=== PATIENT | male | born 1955 | race Two or more races ===

== ENCOUNTER 2025-05-26 21:26 | Inpatient (IN) | payer OTHER ==
[~2025-05-26] VITALS: Ht 195.6 cm; Wt 117.0 kg
--- NOTE | 2025-05-26 22:06 | ED.PDOC ---
Musculoskeletal HPI Comments A 69 year-old male presents to the ED with a chief complaint of right leg pain with associated right groin pain and abrasion to right leg S/P fall minutes ago. Patient reports tripping over a dog gate indoors, where the right knee hit his face and the shoulder/face hit the wall. Patient reports he has pulled his right groin before and further suspects he pulled his right groin again after the fall. Patient has no further complaints at this time and otherwise denies further associated symptoms of LOC, dizziness, migraine, chest pain, or N/V. Chief Complaint: Extremity Swelling Time Seen by MD: 21:59 Reviewed Notes: Medications, Allergies Allergies: Coded Allergies: NO KNOWN ALLERGIES (Unverified , 05/26/25) Information Source: Patient Mode of Arrival: EMS Location: Right Extremity Location: Groin, Leg Timing: Minutes Prehospital treatment: None Severity: Moderate Bear Weight: Limited Pain: Moderate Circumstances: Fall Onset of Symptoms: After Trauma Symptoms: Pain Associated signs and symptoms: Leg pain, Other (R Groin Pain ) Past Medical History PAST MEDICAL HISTORY: Denies Surgical History: Denies all surgeries Family History Family History: Reviewed,noncontributory to illness, No family hx of Cancer, No family hx of DM, No family hx of Heart martin, No family hx of HTN, No family hx ofKidney martin, No family hx of Liver martin, No family hx of Lung martin, No family hx of Stroke Social History Smoker: Non-Smoker Alcohol: Denies ETOH Use Drugs: Denies Drug Use Lives In: Home Constitutional: denies: chills, diaphoresis, fatigue, fever, malaise, sweats, weakness, others EENTM: denies: blurred vision, double vision, ear bleeding, ear discharge, ear drainage, ear pain, ear ringing, eye pain, eye redness, hearing loss, mouth pain, mouth swelling, nasal discharge, nose bleeding, nose congestion, nose pain, photophobia, tearing, throat pain, throat swelling, voice changes, others Respiratory: denies: cough, hemoptysis, orthopnea, SOB at rest, shortness of breath, SOB with excertion, stridor, wheezing, others Cardiovascular: denies: chest pain, dizzy spells, diaphoresis, Dyspnea on exertion, edema, irregular heart beat, left arm pain, lightheadedness, palpitations, PND, syncope, others Gastrointestinal: denies: abdomen distended, abdominal pain, blood streaked bowels, constipated, diarrhea, dysphagia, difficulty swallowing, hematemesis, melena, nausea, poor appetite, poor fluid intake, rectal bleeding, rectal pain, vomiting, others Genitourinary: denies: burning, dysuria, flank pain, frequency, hematuria, incontinence, penile discharge, penile sore, pain, testicle pain, testicle swelling, urgency, others Neurological: denies: dizziness, fainting, headache, left sided numbness, left sided weakness, numbness, paresthesia, pre-existing deficit, right sided numbness, right sided weakness, seizure, speech problems, tingling, tremors, weakness, others Musculoskeletal: reports: others (R leg pain, pain to the groin ); denies: back pain, gout, joint pain, joint swelling, muscle pain, muscle stiffness, neck pain Integumetry: reports: others (abrasion to the R leg ); denies: bruises, change in color, change in hair/nails, dryness, laceration, lesions, lumps, rash, wounds Allergic/Immunocompromised: denies: Difficulty Healing, Frequent Infections, Hives, Itching, others Hematologic/Lymphatic: denies: anemia, blood clots, easy bleeding, easy bruising, swollen glands, others Endocrine: denies: excessive hunger, excessive sweating, excessive thirst, excessive urination, flushing, intolerance to cold, intolerance to heat, unexplained weight gain, unexplained weight loss, others Psychiatric: denies: anxiety, bipolar disorder, depression, hopeless, panic disorder, schizophrenia, sleepless, suicidal, others All Other Systems: Reviewed and Negative Physical Exam General Appearance: Moderate Distress, Normal HEENT: Normal ENT Inspection, Pharynx Normal, TMs Normal Neck: Full Range of Motion, Non-Tender, Normal, Normal Inspection Respiratory: Chest Non-Tender, Lungs Clear, No Accessory Muscle Use, No Respiratory Distress, Normal Breath Sounds Cardiovascular: No Edema, No JVD, No Murmur, No Gallop, Normal Peripheral Pulses, Regular Rate/Rhythm Breast Exam: Deferred Gastrointestinal: No Organomegaly, Non Tender, No Pulsatile Mass, Normal Bowel Sounds, Soft Genitalia: Deferred Pelvic: Deferred Rectal: Deferred Extremities: No calf tenderness, Normal capillary refill, Normal inspection, Normal range of motion, Non-tender, No pedal edema Musculoskeletal : Location: Right Extremity Location: Leg Apperance: Other (no shortening of the R leg, tender upper groin, 10cm superficial abrasion to the Right Anterior Leg ) Neurologic: Alert, electronic health records specialist II-XII nml as Tested, No Motor Deficits, Normal Affect, Normal Mood, No Sensory Deficits Cerebellar Function: Normal Reflexes: Normal Skin: Dry, Normal Color, Warm Lymphatic: No Adenopathy Was a procedure done? Was a procedure done?: No Differential Diagnosis EXT Differential Diagnosis: Sprain, Dislocation, Laceration Other Differential Diagnosis Abrasion X-Ray, Labs, Meds, VS Vital Signs Date Time Temp Pulse Resp B/P (MAP) Pulse Ox O2 Delivery O2 Flow Rate FiO2 05/27/25 04:00 84 27 97/58 (71) 97 05/27/25 02:13 87 11 101/64 05/27/25 02:00 93 13 101/64 (76) 95 05/27/25 01:25 95 17 108/58 05/27/25 00:00 98.0 86 21 121/68 (85) 93 98.0 05/26/25 22:00 83 14 132/79 (96) 95 05/26/25 21:45 Room Air* 0 21 05/26/25 21:35 97.6 95 18 123/89 95 97.6 Lab Test 05/27/25 01:50 Range/Units White Blood Count 12.8 H 4.4-10.8 10^3/uL Red Blood Count 5.25 4.5-5.90 10^6/uL Hemoglobin 14.7 13.5-17.5 g/dL Hematocrit 42.9 41.0-53.0 % Mean Corpuscular Volume 81.7 80.0-100.0 fL Mean Corpuscular Hemoglobin 27.9 L 28.0-32.0 pg Mean Corpuscular Hemoglobin Concent 34.2 32.0-36.0 g/dL Red Cell Distribution Width 14.2 11.8-14.3 % Platelet Count 242 140-450 10^3/uL Mean Platelet Volume 8.1 6.9-10.8 fL Neutrophils (%) (Auto) 83.3 H 37.0-80.0 % Lymphocytes (%) (Auto) 11.2 10.0-50.0 % Monocytes (%) (Auto) 5.1 0.0-12.0 % Eosinophils (%) (Auto) 0.2 0.0-7.0 % Basophils (%) (Auto) 0.2 0.0-2.0 % Neutrophils # (Auto) 10.7 H 1.6-8.6 10 ^3/uL Lymphocytes # (Auto) 1.4 0.4-5.4 10 ^3/uL Monocytes # (Auto) 0.7 0-1.3 10 ^3/uL Eosinophils # (Auto) 0 0-0.8 10 ^3/uL Basophils # (Auto) 0 0-0.2 10 ^3/uL Nucleated Red Blood Cells 0.0 % Sodium Level 139 136-145 mmol/L Potassium Level 4.1 3.5-5.1 mmol/L Chloride Level 106 98-107 mmol/L Carbon Dioxide Level 24 20-31 mmol/L Anion Gap 9 5-15 Blood Urea Nitrogen 14 9-23 mg/dL Creatinine 1.04 0.700-1.30 mg/dL Glomerular Filtration Rate Calc 77 >90 mL/min BUN/Creatinine Ratio 13.5 10.0-20.0 Serum Glucose 138 H 74-106 mg/dL Calcium Level 8.8 8.7-10.4 mg/dL Total Bilirubin 0.8 0.2-1.0 mg/dL Aspartate Amino Transferase (AST) 19 13-40 U/L Alanine Aminotransferase (ALT) 12 7-40 U/L Alkaline Phosphatase 68 46-116 U/L Total Protein 6.5 5.7-8.2 g/dL Albumin 4.3 3.2-4.8 g/dL Current Medications Medications (Trade) Dose Ordered Sig/Juli Route Start Time Stop Time Status Last Admin Bacitracin 1 applic ONCE ONCE TOP 05/26/25 22:00 05/26/25 22:01 DC 05/26/25 22:11 Ketorolac Tromethamine (Toradol Injection) 30 mg ONCE ONCE IM 05/26/25 23:00 05/26/25 23:01 DC 05/26/25 23:01 Morphine Sulfate 4 mg ONCE ONCE IV 05/27/25 01:15 05/27/25 01:16 DC 05/27/25 01:25 Ondansetron HCl (Zofran) 4 mg ONCE ONCE IV 05/27/25 01:15 05/27/25 01:16 DC 05/27/25 01:24 Time of 1ST Reevaluation: 22:24 Reevaluation 1ST: Unchanged Patient Education/Counseling: Diagnosis, Treatment Family Education/Counseling: No Family Present Departure 1 Departure Time of Disposition: 04:25 Impression: Primary Impression: Aortic aneurysm Additional Impression: Fracture of femoral neck, right, closed Disposition: 02 SHORT TERM HOSPITAL Condition: Guarded Discharged With: Self Critical Care Note Critical Care Time?: No Stability Stability form required: No Heart Score Heart Score: Heart Score Response (Comments) Value History N/A 0 EKG N/A 0 Age N/A 0 Risk Factors N/A 0 Troponin N/A 0 Total 0 I personally scribed for RHYS FOY ([facility]) on 05/26/25 at 22:06. Electronically submitted by [facility] RHYS FOY May 26, 2025 22:06 ELIDIA FERREIRA MD May 27, 2025 04:27
[2025-05-26] MEDS: BACITRACIN TOP OINT 1 UD PKG TOP ONE (22:11)
[2025-05-26] MEDS: KETOROLAC TROMETH 30 MG/ML 1ML VIAL IM ONE (23:01)
--- NOTE | 2025-05-27 00:25 | DVH ---
History: fall, hip pain Comparison Study: None Technique: Multidetector spiral CT of the pelvis was performed from iliac crests to pubic symphysis. 100 cc of intravenous contrast was administered during this examination. Portal venous imaging was obtained. Axial, coronal and sagittal multiplanar reformats were performed by the technologist on a separate workstation. Radiation Dose : CT Dose: CTDI volume is 0.41 mGy. Dose-length product is 1024.92 mGy*cm Findings: There is an acute minimally displaced fracture through the base of the right femoral neck. The pelvic rings appear intact. Visualized portions of the pelvis demonstrate an aneurysm of the abdominal aorta measuring up to 4.8 cm and of the right common iliac artery measuring up to 4.9 cm. IMPRESSION: 1. Acute minimally displaced fracture through the base of the right femoral neck. 2. Incompletely assessed aortoiliac aneurysms. Comparison with any prior outside imaging is suggest ed in assessing acuity and interval change. If no prior imaging is available, a dedicated CTA is sug gested in further assessment.
[2025-05-27] MEDS: ONDANSETRON HCL 4 MG/2 ML VIAL IV ONE (01:24)
[2025-05-27] MEDS: MORPHINE SULFATE 4 MG/ML SYR/VIAL IV ONE (01:25)
[2025-05-27 02:13] LABS: Hematocrit 42.9 % (41.0-53.0); Hemoglobin 14.7 g/dL (13.5-17.5); Mean Corpuscular Hemoglobin 27.9 pg (28.0-32.0); Mean Corpuscular Volume 81.7 fL (80.0-100.0); Nucleated Red Blood Cells % 0.0 %
[2025-05-27] MEDS: IOHEXOL 350 MG/ML 100ML IJ ONE (02:16)
[2025-05-27 02:21] LABS: Alanine Aminotransferase 12 U/L (7-40); Albumin 4.3 g/dL (3.2-4.8); Alkaline Phosphatase 68 U/L (46-116); Anion Gap 9 (5-15); BUN/Creatinine Ratio 13.5 (10.0-20.0); Blood Urea Nitrogen 14 mg/dL (9-23); Calcium 8.8 mg/dL (8.7-10.4); Carbon Dioxide 24 mmol/L (20-31); Chloride 106 mmol/L (98-107); Potassium 4.1 mmol/L (3.5-5.1); Sodium 139 mmol/L (136-145); Total Protein 6.5 g/dL (5.7-8.2)
[2025-05-27 02:22] LABS: Bilirubin, Total 0.8 mg/dL (0.2-1.0); Glucose 138 mg/dL (74-106)
--- NOTE | 2025-05-27 03:40 | DVH ---
Procedure: CT ANGIO AORTIC ABDOMINAL HISTORY: aortic aneurism Comparison Study: None Exam Date:05/27/2025 02:16 AM TECHNIQUE: CTA scanner volumetric data acquisition of abdomen and pelvis was obtained following intravenous admi nistration of intravenous contrast without any reported adverse effects. Axial images were reconstru cted and additional sagittal and coronal images were reformatted. arterial phase imaging were perfor med. Postprocessing was also performed on a Separate workstation. 3D images were performed on a dedicated workstation and reviewed for reporting. Radiation Dose : CT Dose: CTDI volume is 26.48 mGy. Dose-length product is 1578.11 mGy*cm FINDINGS: Vascular: Aortic measurements: aortic hiatus 29 mm and suprarenal abdominal aorta 24 mm. Multifocal saccular i nfrarenal abdominal aortic aneurysm measures 13.1 cm in craniocaudal dimension. The proximal moiety m easures 6.5 x 5.7 cm transverse and the more distal moiety measures 5.6 x 5.0 cm transverse. Extensi ve noncalcified mural thickening with atherosclerotic plaque. There is aneurysmal dilatation of the proximal common iliac arteries measuring 5.3 x 4.6 cm on the ri ght and 2.6 cm in diameter on the left. The mesenteric, and bilateral renal arteries are widely patent without any focal stenosis or aneurys m. Lung Bases: No acute or significant lung base finding. Normal heart size. No pleural or pericardial effusion. Liver: The liver is normal in size. No focal lesions. Normal hepatic vascular enhancement. Gallbladder and Biliary Tree: Unremarkable Spleen: Unremarkable Pancreas: The pancreas is normal in appearance without focal lesions or abnormal enhancement. Adrenal Glands: Unremarkable Kidneys: Kidneys demonstrate normal symmetric enhancement without focal lesions, calculi or hydroneph rosis. Bladder: Unremarkable Bowel: The stomach is grossly normal in appearance. Small bowel and colon are normal in caliber and d istribution. Normal appendix is normal. Ascites: Absent Lymphadenopathy: No mesenteric, retroperitoneal or periportal lymphadenopathy. Abdominal Wall and Mesentery: Unremarkable. Pelvic Organs: The prostate is enlarged, measuring 5.7 cm transverse. Musculoskeletal: No aggressive focal bony lesions, acute fractures or dislocation. IMPRESSION: 1. Multifocal infrarenal abdominal aortic aneurysm with continuation of Aneurysmal dilatation into th e proximal bilateral common carotid arteries, [id number]. Extensive noncalcified mural t hickening and atherosclerotic vascular calcifications throughout the aorta and major branching vessel s. 2. Prostatomegaly.
[2025-05-27 08:00] VITALS: PULSE 86; RESP 13; O2SAT 95
--- NOTE | 2025-05-27 10:32 | ED.PDOC ---
Departure 1 Departure Time of Disposition: 10:31 ([facility] [phone] Dr. Lynn, Authorization to [facility].Vascular surgery recommends admission to medicine, orthopedic consult for the femur fracture, and vascular will plan the aortic repair. ) Impression: Primary Impression: Aortic aneurysm Qualified Codes: I71.43 - Infrarenal abdominal aortic aneurysm, without rupture Additional Impression: Fracture of femoral neck, right, closed Qualified Codes: S72.001A - Fracture of unspecified part of neck of right femur, initial encounter for closed fracture Disposition: 09 ADMITTED INPATIENT Admit to: Med Surg Condition: Serious Discharged With: Self CARLOS CARDONA MD May 27, 2025 10:32
[2025-05-27] MEDS ORDERED: SIMV20TA20 PO (11:51)
[2025-05-27] MEDS ORDERED: AMLO1TAB22 PO (11:51)
[2025-05-27] MEDS ORDERED: LISI40TA16 PO (11:51)
[2025-05-27] MEDS ORDERED: PANT40T PO (11:51)
[2025-05-27] MEDS ORDERED: ONDANSETRON HCL 4 MG/2 ML VIAL IV PRN (12:00)
[2025-05-27] MEDS ORDERED: DOCUSATE SOD 100 MG CAP PO PRN (12:00)
[2025-05-27] MEDS ORDERED: NITROGLYCERIN 0.4 MG SL TAB SL PRN (12:00)
[2025-05-27] MEDS ORDERED: MORPHINE SULFATE INJ 2 MG/ml SYRG IV PRN (12:00)
--- NOTE | 2025-05-27 12:10 | DVHHP2 ---
History of Present Illness Reason for Visit: Fall with injury History of Present Illness Minesh Massey is a 69-year-old male with past medical history of hypertension, hyperlipidemia, and GERD who came to the hospital S/P fall with injury. Patient states he tripped and had a ground level fall where he hyperextended his right leg. He states after the fall he was in too much pain to stand or ambulate. EMS was called and helped him and brought him to the hospital. Imaging revealed a right femoral neck fracture, and an incidental finding of an abdominal aortic aneurysm. Orthopedic surgery and vascular surgery will be consulted. Cardiovascular: HTN, hyperipidemia GI: GERD Past Surgical History: Hernia Repair Smoke: <1 pack per day (Vapes) ALCOHOL: none Drugs: None Lives: with Family Domestic Violence: Neg Review of Systems Constitutional: No: Fever, Chills, Sweats, Weakness, Malaise, Other Eyes: No: Pain, Vision change, Conjunctivae inflammation, Eyelid inflammation, Other, Redness ENT: No: Ear pain, Ear discharge, Nose pain, Nose discharge, Nose congestion, Mouth pain, Mouth swelling, Throat pain, Throat swelling, Other Respiratory: No: Cough, Dry, Shortness of breath, SOB with excertion, Wheezing, Hemoptysis, Pleuritic Pain, Sputum, Wheezing, Other Cardiovascular: No: Chest Pain, Palpitations, Orthopnea, Paroxysmal Noc. Dyspnea, Edema, Lt Headedness, Other Gastrointestinal: No: Nausea, Vomiting, Abdominal Pain, Diarrhea, Constipation, Melena, Hematochezia, Other Genitourinary: No Dysuria, No Frequency, No Incontinence, No Hematuria, No Retention, No Other Musculoskeletal: leg pain (right); No: other, neck pain, shoulder pain, arm pain, back pain, hand pain, foot pain Skin: No: Rash, Lesions, Jaundice, Bruising, Other Neurological: No: Weakness, Numbness, Incoordination, Change in speech, Confusion, Seizures, Other Allergies: Coded Allergies: NO KNOWN ALLERGIES (Unverified , 05/26/25) Medications Current Medications Medications Dose Ordered Sig/Juli Route Start Time Stop Time Status Last Admin Dose Admin Sodium Chloride 1,000 ml @ 100 mls/hr Q10H IV 05/27/25 12:00 UNV Acetaminophen/ Hydrocodone Bitart 1 tab Q4HP PRN PO 05/27/25 12:00 UNV Ondansetron HCl 4 mg Q4HP PRN IV 05/27/25 12:00 UNV Docusate Sodium 100 mg BIDPRN PRN PO 05/27/25 12:00 UNV Acetaminophen 650 mg Q6HP PRN PO 05/27/25 12:00 UNV Morphine Sulfate 2 mg Q4HPRN PRN IV 05/27/25 12:00 UNV Nitroglycerin 0.4 mg Q5MINP PRN SL 05/27/25 12:00 UNV Morphine Sulfate 2 mg Q30M PRN IV 05/27/25 12:00 UNV Pantoprazole Sodium 40 mg DAILY IV 05/28/25 10:00 UNV Amlodipine Besylate 5 mg DAILY PO 05/28/25 10:00 UNV Patient Own Medication 1 tab DAILY PO 05/28/25 10:00 UNV Patient Own Medication 1 tab HS PO 05/27/25 22:00 UNV Exam Vital Signs Vital Signs Date Time Temp Pulse Resp B/P (MAP) Pulse Ox O2 Delivery O2 Flow Rate FiO2 05/27/25 10:01 77 18 117/47 (70) 92 05/27/25 08:00 98.9 98.9 05/27/25 08:00 Nasal Cannula* 2 28 General Appearance: Alert, Oriented X3, Cooperative, mild distress HEENT: Atraumatic, PERRLA Respiratory: Clear to auscultation, Normal air movement Cardiovascular: Regular rate, Normal S1, Normal S2, No murmurs Abdominal: Normal bowel sounds, Soft, No tenderness Extremities: No clubbing, Other (right legt pain and edema) Skin: No rashes, No breakdown Neuro: Normal speech, Other (unable to ambulate due to fracture) Psych/Mental Status: Mental status NL, Mood NL Labs/Xrays Labs Test 05/27/25 01:50 Range/Units White Blood Count 12.8 H 4.4-10.8 10^3/uL Red Blood Count 5.25 4.5-5.90 10^6/uL Hemoglobin 14.7 13.5-17.5 g/dL Hematocrit 42.9 41.0-53.0 % Mean Corpuscular Volume 81.7 80.0-100.0 fL Mean Corpuscular Hemoglobin 27.9 L 28.0-32.0 pg Mean Corpuscular Hemoglobin Concent 34.2 32.0-36.0 g/dL Red Cell Distribution Width 14.2 11.8-14.3 % Platelet Count 242 140-450 10^3/uL Mean Platelet Volume 8.1 6.9-10.8 fL Neutrophils (%) (Auto) 83.3 H 37.0-80.0 % Lymphocytes (%) (Auto) 11.2 10.0-50.0 % Monocytes (%) (Auto) 5.1 0.0-12.0 % Eosinophils (%) (Auto) 0.2 0.0-7.0 % Basophils (%) (Auto) 0.2 0.0-2.0 % Neutrophils # (Auto) 10.7 H 1.6-8.6 10 ^3/uL Lymphocytes # (Auto) 1.4 0.4-5.4 10 ^3/uL Monocytes # (Auto) 0.7 0-1.3 10 ^3/uL Eosinophils # (Auto) 0 0-0.8 10 ^3/uL Basophils # (Auto) 0 0-0.2 10 ^3/uL Nucleated Red Blood Cells 0.0 % Sodium Level 139 136-145 mmol/L Potassium Level 4.1 3.5-5.1 mmol/L Chloride Level 106 98-107 mmol/L Carbon Dioxide Level 24 20-31 mmol/L Anion Gap 9 5-15 Blood Urea Nitrogen 14 9-23 mg/dL Creatinine 1.04 0.700-1.30 mg/dL Glomerular Filtration Rate Calc 77 >90 mL/min BUN/Creatinine Ratio 13.5 10.0-20.0 Serum Glucose 138 H 74-106 mg/dL Calcium Level 8.8 8.7-10.4 mg/dL Total Bilirubin 0.8 0.2-1.0 mg/dL Aspartate Amino Transferase (AST) 19 13-40 U/L Alanine Aminotransferase (ALT) 12 7-40 U/L Alkaline Phosphatase 68 46-116 U/L Total Protein 6.5 5.7-8.2 g/dL Albumin 4.3 3.2-4.8 g/dL Technique: CT of the pelvis Findings: There is an acute minimally displaced fracture through the base of the right femoral neck. The pelvic rings appear intact. Visualized portions of the pelvis demonstrate an aneurysm of the abdominal aorta measuring up to 4.8 cm and of the right common iliac artery measuring up to 4.9 cm. IMPRESSION: 1. Acute minimally displaced fracture through the base of the right femoral neck. 2. Incompletely assessed aortoiliac aneurysms. Comparison with any prior outside imaging is suggested in assessing acuity and interval change. If no prior imaging is available, a dedicated CTA is suggested in further assessment. Procedure: CT ANGIO AORTIC ABDOMINAL HISTORY: aortic aneurism FINDINGS: Vascular: Aortic measurements: aortic hiatus 29 mm and suprarenal abdominal aorta 24 mm. Multifocal saccular infrarenal abdominal aortic aneurysm measures 13.1 cm in craniocaudal dimension. The proximal moiety measures 6.5 x 5.7 cm transverse and the more distal moiety measures 5.6 x 5.0 cm transverse. Extensive noncalcified mural thickening with atherosclerotic plaque. There is aneurysmal dilatation of the proximal common iliac arteries measuring 5.3 x 4.6 cm on the right and 2.6 cm in diameter on the left. The mesenteric, and bilateral renal arteries are widely patent without any focal stenosis or aneurysm. Lung Bases: No acute or significant lung base finding. Normal heart size. No pleural or pericardial effusion. Liver: The liver is normal in size. No focal lesions. Normal hepatic vascular enhancement. Gallbladder and Biliary Tree: Unremarkable Spleen: Unremarkable Pancreas: The pancreas is normal in appearance without focal lesions or abnormal enhancement. Adrenal Glands: Unremarkable Kidneys: Kidneys demonstrate normal symmetric enhancement without focal lesions, calculi or hydronephrosis. Bladder: Unremarkable Bowel: The stomach is grossly normal in appearance. Small bowel and colon are normal in caliber and distribution. Normal appendix is normal. Ascites: Absent Lymphadenopathy: No mesenteric, retroperitoneal or periportal lymphadenopathy. Abdominal Wall and Mesentery: Unremarkable. Pelvic Organs: The prostate is enlarged, measuring 5.7 cm transverse. Musculoskeletal: No aggressive focal bony lesions, acute fractures or dislo cation. IMPRESSION: 1. Multifocal infrarenal abdominal aortic aneurysm with continuation of Aneurysmal dilatation into the proximal bilateral common carotid arteries, [id number]. Extensive noncalcified mural thickening and atherosclerotic vascular calcifications throughout the aorta and major branching vessels. 2. Prostatomegaly. SEPSIS Sepsis Screen Date sepsis recognized/suspect: May 27, 2025 Time Sepsis recognized/suspect: 0800 Recent Procedure: No On Antibiotic Therapy: No Respiratory Rate >20: No Heart Rate >90: No Temp<36 C (96.8 F) or >38.3 C: No SBP <90 or MAP <65 mmHG: No New Acute Mental Status Change: No Is the patient on CPAP, BIPAP,: No Physician Orders Imaging Transfer Request (05/27/25 04:29) * Orthopedic Consult (05/27/25 10:29) Consult Vascular/Endovascular (05/27/25 10:29) Electrocardigram (05/27/25 11:38) Admit (05/27/25 11:49) Code Status (05/27/25 11:49) Sodium Chloride 0.9% (05/27/25 12:00) Hydrocodone-Acet 5/325mg Tab (Jacobson 5/32 (05/27/25 12:00) Ondansetron Hcl (Zofran) (05/27/25 12:00) Docusate Sodium Capsule (Colace Capsule) (05/27/25 12:00) Fall Risk Precautions In Place QSHIFT (05/27/25 11:49) Complete Blood Count (05/28/25 04:00) Comprehensive Metabolic Panel (05/28/25 04:00) Npo (Nothing By Mouth) Diet (05/27/25 Lunch) Echo 2d Mode Cardiac Dop (05/27/25 11:49) Condition: Critical (05/27/25 11:49) Acetaminophen Tablet (Tylenol Tablet) (05/27/25 12:00) Morphine Sulfate Injection (05/27/25 12:00) Nitroglycerin Sublingual (Ntrostat Subli (05/27/25 12:00) Morphine Sulfate Injection (05/27/25 12:00) Stat Ekg For Chest Pain (05/27/25 11:49) Notify Md Of Changes From Base (05/27/25 11:49) Inspector [employer] Products For 24 Hours (05/27/25 11:49) Emergency Dysrhythmia Protocol (05/27/25 11:49) Rhythm Strips Once Every Shift (05/27/25 11:49) Oxygen By Nasal Cannula (05/27/25 11:49) Pantoprazole (Protonix) (05/28/25 10:00) Amlodipine Tablet (Norvasc Tablet) (05/28/25 10:00) (Nf) Lisinopril (05/28/25 10:00) (Nf) Simvastatin (05/27/25 22:00) Vital Signs Date Time Temp Pulse Resp B/P (MAP) Pulse Ox O2 Delivery O2 Flow Rate FiO2 05/27/25 10:01 77 18 117/47 (70) 92 05/27/25 08:02 60 05/27/25 08:00 98.9 86 13 103/53 (70) 95 98.9 05/27/25 08:00 86 13 95 Nasal Cannula* 2 28 05/27/25 06:00 82 15 105/65 (78) 95 05/27/25 04:00 84 27 97/58 (71) 97 Laboratory Tests Test 05/27/25 01:50 White Blood Count 12.8 10^3/uL (4.4-10.8) H Medications Medications Dose Ordered Sig/Juli Route Start Time Stop Time Status Last Admin Dose Admin Morphine Sulfate 4 mg ONCE ONCE IV 05/27/25 01:15 05/27/25 01:16 DC 05/27/25 01:25 4 MG Ondansetron HCl 4 mg ONCE ONCE IV 05/27/25 01:15 05/27/25 01:16 DC 05/27/25 01:24 4 MG Assessment/Plan Assessment/Plan Assessment: Fracture of femoral neck, right, closed, Aortic aneurysm, Hypertension, Hyperlipidemia, GERD, Plan: Admit to Tele, Orthopedic surgery consult, Vascular surgery consult, IV hydration, Pain management, PT/PTT, Chest X-ray, Home medications reconciled, Plan discussed with: Patient My Orders Orders - GEORGINA FRANCO [employer] Procedure Category Date Status Time Electrocardigram EKG 05/27/25 Logged 11:38 Admit ADMIT 05/27/25 Transmitted 11:49 Code Status CODE 05/27/25 Transmitted 11:49 Sodium Chloride 0.9% PHA 05/27/25 Logged 12:00 Hydrocodone-Acet PHA 05/27/25 Logged 5/325mg Tab (Jacobson 12:00 Ondansetron Hcl PHA 05/27/25 Logged (Zofran) 12:00 Docusate Sodium PHA 05/27/25 Logged Capsule (Colace 12:00 Fall Risk Precautions [facility] 05/27/[address] 11:49 Complete Blood Count LAB 05/28/25 Verified 04:00 Comprehensive LAB 05/28/25 Verified Metabolic Panel 04:00 Npo (Nothing By DIET 05/27/25 Transmitted Mouth) Diet Lunch Echo 2d Mode Cardiac US 05/27/25 Logged DOP 11:49 Condition: Critical [facility] 05/27/25 In Process 11:49 Acetaminophen Tablet PHA 05/27/25 Logged (Tylenol Tablet) 12:00 Morphine Sulfate PHA 05/27/25 Logged Injection 12:00 Nitroglycerin PHA 05/27/25 Logged Sublingual (Ntrostat 12:00 Morphine Sulfate PHA 05/27/25 Logged Injection 12:00 Stat Ekg For Chest [facility] 05/27/25 In Process Pain 11:49 Notify Md Of Changes [facility] 05/27/25 In Process From Base 11:49 Inspector [employer] Products For [facility] 05/27/25 In Process 24 Hours 11:49 Emergency Dysrhythmia [facility] 05/27/25 In Process Protocol 11:49 Rhythm Strips Once [facility] 05/27/25 In Process Every Shift 11:49 Oxygen By Nasal RT 05/27/25 Transmitted Cannula 11:49 Pantoprazole PHA 05/28/25 Logged (Protonix) 10:00 Amlodipine Tablet PHA 05/28/25 Logged (Norvasc Tablet) 10:00 (Nf) Lisinopril PHA 05/28/25 Logged 10:00 (Nf) Simvastatin PHA 05/27/25 Logged 22:00 Date of Service: May 27, 2025 Billing Provider: GEORGINA FRANCO Common Visit Codes: [id number] INP/OBS CARE (HIGH) GEORGINA FRANCO May 27, 2025 12:10
[2025-05-27] MEDS: SODIUM CHLORIDE 0.9% 1,000 ML IV SCH (12:16)
--- NOTE | 2025-05-27 13:19 | DVHINCON2 ---
Consult Note Consult Consult Note HPI: Mr. Minesh Smith was seen in the emergency department today after sustaining a ground-level fall today. He complained of right hip pain and was unable to ambulate, which prompted ED evaluation. CT scan were performed. Imaging revealed a fracture at the base of the femoral neck, prompting an ort hopedic consultation. The patient denies any recent head trauma, loss of consciousness, or other injuries. He is not currently taking any blood thinners. He has a known history of an abdominal aortic aneurysm, for which vascular surgery will be consulted. Hx of HTN, HLP and Gout. --- Medical History: Abdominal aortic aneurysm HT, HLP, GOUT --- Physical Examination: General: Alert and oriented x3, in mild distress due to pain Right Hip: Unable to bear weight Tender to palpation over right groin External rotation deformity of right lower extremity No open wounds or skin changes Neurovascular: Distal pulses palpable Sensation and motor function grossly intact distally --- Imaging: Right hip CT of the right hip confirm a base of femoral neck fracture.No evidence of dislocation. No obvious signs of pathologic fracture noted. --- Assessment: 1. Right femoral neck base fracture acute, closed 2. History of abdominal aortic aneurysm vascular surgery evaluation required 3. Planned surgical intervention: ORIF with intramedullary nail fixation --- Plan: Discussed patient hx and CT with Dr. Castaneda food and nutrition services supervisor surgeon NPO after midnight the day before scheduled surgery. Risks benefits options and alternative reviewed in depth. Risks include but not exclusive to bleeding infection nerve injury hardware failure nonunion malunion chronic pain blood clots cardiac and pulmonary complications amputation and . Patient understands the morbidity and moratlity of hip fractures in the elderly. He understands that if fracture does not heal he will need hip replacement in the future. Surgical consent for open reduction internal fixation of right femoral neck fracture obtained by ER nursing staff Cardiology clearance to be obtained preoperatively Vascular surgery consult for abdominal aneurysm evaluation Pain control, fall precautions, and DVT prophylaxis per protocol Monitor labs and pre-op clearance by medicine team All questions were answered for the patient and care team. Plan discussed with: Patient, Other (bedside nurse) Visit Coding Surgery Date of Service if different f: May 27, 2025 Billing Provider: MACARIO ESTRADA Surgery Visit Codes: 93581 - INP CONSULT <55 MIN MACARIO ESTRADA PAC May 27, 2025 13:19 [place]ON CASTANEDA MD May 29, 2025 07:26
--- NOTE | 2025-05-27 14:18 | DVH ---
EXAM: XY CHEST XRAY 1 VIEW TECHNIQUE: Single frontal chest radiograph CLINICAL HISTORY: preop COMPARISON: None Findings/Impression: Frontal chest radiograph demonstrates no acute osseous or superficial soft tissue abnormalities. The trachea is midline. The cardiac silhouette and mediastinum are within normal limits. No pneumothorax, pleural effusions, or consolidations.
[2025-05-27 14:48] LABS: Urine Protein, UAD Negative (Negative)
--- NOTE | 2025-05-27 14:49 | DVHINCON2 ---
Date Seen: May 27, 2025 Referring Physician NELA Grier Reason for Consultation Cardiac risk stratification History of Present Illness This is a 69-year-old male patient who presents to emergency room with chief complaint of mechanical fall. The patient reports he tripped at home and began experiencing right hip pain which prompted him to come to the emergency room. Cardiology has been consulted at this time for cardiac risk stratification. Imaging has revealed an acute displaced fracture through the base of the right femoral neck. Incidentally, imaging has also revealed a large abdominal aortic aneurysm. Initial twelve lead electrocardiogram reveals normal sinus rhythm with PAC and PVCs. Significant past medical history includes hypertension, dyslipidemia, gout, nicotine use, and obesity. Past Medical History Past medical history reviewed. No other significant than mentioned above. Past Surgical History Denies any previous surgeries Family History Family history reviewed. Social History Patient states that he vapes daily Denies any illicit drug use Denies any alcohol use Allergies: Coded Allergies: NO KNOWN ALLERGIES (Unverified , 05/26/25) Home Meds Reported Medications Pantoprazole Sodium Sesquihydr (Pantoprazole Sodium) 40 Mg Tab, 1 TAB PO DAILY 05/27/25 Simvastatin (Simvastatin) 20 Mg Tab, 1 TAB PO HS 05/27/25 Lisinopril (Lisinopril) 40 Mg Tab, 1 TAB PO DAILY 05/27/25 Amlodipine Besylate (Amlodipine Besylate) 5 Mg Tab, 1 TAB PO DAILY 05/27/25 Home Meds Home medications reviewed. Current Medications Current Medications Medications (Trade) Dose Ordered Sig/Juli Route PRN Reason Start Time Stop Time Status Last Admin Sodium Chloride 1,000 ml @ 100 mls/hr Q10H IV 05/27/25 12:00 05/27/25 12:16 Acetaminophen/ Hydrocodone Bitart (Andrews 5/325MG Tab) 1 tab Q4HP PRN PO MODERATE PAIN (4-6 PAIN SCALE) 05/27/25 12:00 Ondansetron HCl (Zofran) 4 mg Q4HP PRN IV NAUSEA / VOMITING 05/27/25 12:00 Docusate Sodium (Colace Capsule) 100 mg BIDPRN PRN PO FOR CONSTIPATION 05/27/25 12:00 Acetaminophen (Tylenol Tablet) 650 mg Q6HP PRN PO PAIN SCALE 1-3 OR TEMP>100.4 05/27/25 12:00 Morphine Sulfate 2 mg Q4HPRN PRN IV SEVERE PAIN (7-10 PAIN SCALE) 05/27/25 12:00 Nitroglycerin (Ntrostat Sublingual) 0.4 mg Q5MINP PRN SL FOR CHEST PAIN 05/27/25 12:00 Morphine Sulfate 2 mg Q30M PRN IV FOR CHEST PAIN 05/27/25 12:00 Pantoprazole Sodium (Protonix) 40 mg DAILY IV 05/28/25 10:00 Amlodipine Besylate (Norvasc Tablet) 5 mg DAILY PO 05/28/25 10:00 Lisinopril (Zestril Tablet) 40 mg DAILY PO 05/28/25 10:00 Patient Own Medication 1 tab HS PO 05/27/25 22:00 UNV Atorvastatin Calcium (Lipitor) 10 mg HS PO 05/27/25 22:00 Review of Systems Constitutional: No symptom reported Ears, Nose, & Throat: No symptom reported Eyes: No symptom reported Neurological: No symptoms reported Pulmonary/Respiratory: No symptoms reported Cardiovascular: No symptom reported Gastrointestinal: No symptom reported Genitourinary: No symptom reported Musculoskeletal: Right hip pain Skin: No symptom reported Psychiatric: No symptom reported Endocrine: No symptom reported Hematologic/Lymphatic: No symptom reported Vital Signs Vital Signs Date Time Temp Pulse Resp B/P (MAP) Pulse Ox O2 Delivery O2 Flow Rate FiO2 05/27/25 14:00 99.6 104 15 107/62 (77) 91 99.6 05/27/25 08:00 Nasal Cannula* 2 28 Physical Exam General Appearance: Cooperative. Morbidly obese Pulmonary/Respiratory: Clear, bilateral breaths sounds. Cardiovascular/Chest: Regular rate and rhythm. Peripheral Pulses: 2+ Radial (R). 2+ Radial (L). 2+ Pedal (R). 2+ Pedal (L) Abdominal Exam: Normal bowel sounds. Ankle Exam: Negative ankle edema Lower extremities: Negative lower extremity edema Neuro/Mental Status: A/OX4, coherent. Thoughts/Psych: Normal thought pattern. Appropriate mood and affect. Good judgment and insight. Appearance: No acute distress. Skin Exam: Normal inspection. Normal color. Warm and dry. Labs/Diagnostic Data Labs Test 05/27/25 14:00 05/27/25 01:50 Range/Units White Blood Count 12.8 H 4.4-10.8 10^3/uL Red Blood Count 5.25 4.5-5.90 10^6/uL Hemoglobin 14.7 13.5-17.5 g/dL Hematocrit 42.9 41.0-53.0 % Mean Corpuscular Volume 81.7 80.0-100.0 fL Mean Corpuscular Hemoglobin 27.9 L 28.0-32.0 pg Mean Corpuscular Hemoglobin Concent 34.2 32.0-36.0 g/dL Red Cell Distribution Width 14.2 11.8-14.3 % Platelet Count 242 140-450 10^3/uL Mean Platelet Volume 8.1 6.9-10.8 fL Neutrophils (%) (Auto) 83.3 H 37.0-80.0 % Lymphocytes (%) (Auto) 11.2 10.0-50.0 % Monocytes (%) (Auto) 5.1 0.0-12.0 % Eosinophils (%) (Auto) 0.2 0.0-7.0 % Basophils (%) (Auto) 0.2 0.0-2.0 % Neutrophils # (Auto) 10.7 H 1.6-8.6 10 ^3/uL Lymphocytes # (Auto) 1.4 0.4-5.4 10 ^3/uL Monocytes # (Auto) 0.7 0-1.3 10 ^3/uL Eosinophils # (Auto) 0 0-0.8 10 ^3/uL Basophils # (Auto) 0 0-0.2 10 ^3/uL Nucleated Red Blood Cells 0.0 % Sodium Level 139 136-145 mmol/L Potassium Level 4.1 3.5-5.1 mmol/L Chloride Level 106 98-107 mmol/L Carbon Dioxide Level 24 20-31 mmol/L Anion Gap 9 5-15 Blood Urea Nitrogen 14 9-23 mg/dL Creatinine 1.04 0.700-1.30 mg/dL Glomerular Filtration Rate Calc 77 >90 mL/min BUN/Creatinine Ratio 13.5 10.0-20.0 Serum Glucose 138 H 74-106 mg/dL Calcium Level 8.8 8.7-10.4 mg/dL Total Bilirubin 0.8 0.2-1.0 mg/dL Aspartate Amino Transferase (AST) 19 13-40 U/L Alanine Aminotransferase (ALT) 12 7-40 U/L Alkaline Phosphatase 68 46-116 U/L Total Protein 6.5 5.7-8.2 g/dL Albumin 4.3 3.2-4.8 g/dL Assessment Preprocedural cardiovascular examination Chronic HFrEF, NYHA class II, newly diagnosed Abdominal aortic aneurysm Acute right femoral neck fracture Hypertension Dyslipidemia Prediabetes, newly diagnosed Morbid obesity Plan/Recommendation We will continue with the following plan/recommendations (Dr. Underwood): A transthoracic echocardiogram reveals an EF of 35% with global hypokinesis, RVSP approximately 40 mmHg. A chest x-ray done on this admission shows no acute findings. Revised Cardiac Risk Index (Brooks criteria): 1 point (1.1% risk of major cardiac event). The patient was initially scheduled for a nuclear stress test t o evaluate for any coronary ischemia. The patient refused to undergo this test. Given that we were unable to complete a full preprocedural cardiovascular examination, the patient is at least a moderate risk for moderate risk surgery. We will recommend to initiate guideline directed medical therapy for CHF as tolerated. Initiate beta-heidy postprocedure. Consider initiating MRA (spironolactone) with stable potassium. The patient should eventually undergo ischemic workup, if he is agreeable. Please reconsult if needed. Thank you for allowing us to participate in this patient's care. Please call if you have any questions or concerns. This medical document was created using an electronic medical record system with voice recognition software and computerized dictation system. Although this document has been carefully reviewed, there might still be some phonetic and typographical errors. Occasional wrong-word or ``sound-alike substitutions may have occurred due to the inherent limitations of voice recognition software. These areas are purely typographical due to imperfections of the software programs and do not reflect any compromise in the patient's medical care. Please read the chart carefully and recognize, using context, where these substitutions have occurred. Plan discussed with: Patient NYHA Physical activity limitations: Class2(Slight)fatigue,sob (palpitatns, angina w activityv) Date of Service: May 27, 2025 Billing Provider: ELEANOR CRAIG Cardiology Common Codes: 12198-KTIPEMQ INP/OBS CARE (High) Cardiology Consultation Codes: 53753-[id number] CONSULT <45MIN ELEANOR CRAIG May 27, 2025 14:49
[2025-05-27 14:56] LABS: Triglycerides 90.0 mg/dL (< 150)
[2025-05-27 14:57] LABS: Magnesium 2.0 mg/dL (1.6-2.6)
[2025-05-27 14:58] LABS: Cholesterol 135.0 mg/dL (< 200); HDL Cholesterol 40.0 mg/dL (40-59)
[2025-05-27] MEDS: MAGNESIUM SULFATE 1GM/100ML 100 ML IV ONE (16:49)
--- NOTE | 2025-05-27 18:53 | DVHCONRES ---
Date Seen: May 27, 2025 Resident Creating Document: ROULA CORDOBA Jr., MD Referring Physician er Reason for Consultation aaa History of Present Illness 69-year-old male with past medical history of hypertension, hyperlipidemia, and GERD who came to the hospital S/P fall with injury. Patient states he tripped and had a ground level fall where he hyperextended his right leg. He states after the fall he was in too much pain to stand or ambulate. EMS was called and helped him and brought him to the hospital. Imaging revealed a right femoral neck fracture, and an incidental finding of an abdominal aortic aneurysm. Past Medical History hypertension, hyperlipidemia, and GERD Social History former smoker Allergies: Coded Allergies: NO KNOWN ALLERGIES (Unverified , 05/26/25) Home Meds Reported Medications Pantoprazole Sodium Sesquihydr (Pantoprazole Sodium) 40 Mg Tab, 1 TAB PO DAILY 05/27/25 Simvastatin (Simvastatin) 20 Mg Tab, 1 TAB PO HS 05/27/25 Lisinopril (Lisinopril) 40 Mg Tab, 1 TAB PO DAILY 05/27/25 Amlodipine Besylate (Amlodipine Besylate) 5 Mg Tab, 1 TAB PO DAILY 05/27/25 Current Medications Current Medications Medications (Trade) Dose Ordered Sig/Juli Route PRN Reason Start Time Stop Time Status Last Admin Sodium Chloride 1,000 ml @ 100 mls/hr Q10H IV 05/27/25 12:00 05/27/25 12:16 Acetaminophen/ Hydrocodone Bitart (Lititz 5/325MG Tab) 1 tab Q4HP PRN PO MODERATE PAIN (4-6 PAIN SCALE) 05/27/25 12:00 Ondansetron HCl (Zofran) 4 mg Q4HP PRN IV NAUSEA / VOMITING 05/27/25 12:00 Docusate Sodium (Colace Capsule) 100 mg BIDPRN PRN PO FOR CONSTIPATION 05/27/25 12:00 Acetaminophen (Tylenol Tablet) 650 mg Q6HP PRN PO PAIN SCALE 1-3 OR TEMP>100.4 05/27/25 12:00 Morphine Sulfate 2 mg Q4HPRN PRN IV SEVERE PAIN (7-10 PAIN SCALE) 05/27/25 12:00 Nitroglycerin (Ntrostat Sublingual) 0.4 mg Q5MINP PRN SL FOR CHEST PAIN 05/27/25 12:00 Morphine Sulfate 2 mg Q30M PRN IV FOR CHEST PAIN 05/27/25 12:00 Pantoprazole Sodium (Protonix) 40 mg DAILY IV 05/28/25 10:00 Amlodipine Besylate (Norvasc Tablet) 5 mg DAILY PO 05/28/25 10:00 Lisinopril (Zestril Tablet) 40 mg DAILY PO 05/28/25 10:00 Patient Own Medication 1 tab HS PO 05/27/25 22:00 UNV Atorvastatin Calcium (Lipitor) 10 mg HS PO 05/27/25 22:00 Review of Systems All systems reviewed otherwise negative other than what is in HPI. Vital Signs Vital Signs Date Time Temp Pulse Resp B/P (MAP) Pulse Ox O2 Delivery O2 Flow Rate FiO2 05/27/25 17:03 54 16 107/56 (73) 90 05/27/25 14:00 99.6 99.6 05/27/25 08:00 Nasal Cannula* 2 28 Physical Exam Head eyes ears nose and throat exam eyes are nonicteric conjunctiva is pink neck was supple no JVD no lymphadenopathy no carotid bruits lungs are clear to a uscultation heart was regular rate and rhythm abdomen is soft nontender. Pulsatile abdominal mass was noted. It was nontender. Palpable femoral and pedal pulses bilaterally. He has tenderness in the right hip secondary to hip fracture. Neurologically motor and sensory grossly intact. Labs/Diagnostic Data Labs Test 05/27/25 14:00 05/27/25 01:50 Range/Units Urine Color Yellow Yellow Urine Clarity Clear Clear Urine pH 5.5 5.0-9.0 Urine Specific [place] 1.049 H 1.001-1.035 Urine Protein Negative Negative Urine Ketones 1+ H Negative Urine Blood Negative Negative /uL Urine Nitrite Negative Negative Urine Bilirubin Negative Negative Urine Urobilinogen Normal Negative mg/dL Urine Leukocyte Esterase Negative Negative /uL Urine RBC 2 0 - 3 /hpf Urine Microscopic WBC 1 0-3 /HPF Urine Squamous Epithelial Cells Few <5 /hpf Urine Bacteria Few H None Seen /hpf Urine Glucose Normal Normal mg/dL White Blood Count 12.8 H 4.4-10.8 10^3/uL Red Blood Count 5.25 4.5-5.90 10^6/uL Hemoglobin 14.7 13.5-17.5 g/dL Hematocrit 42.9 41.0-53.0 % Mean Corpuscular Volume 81.7 80.0-100.0 fL Mean Corpuscular Hemoglobin 27.9 L 28.0-32.0 pg Mean Corpuscular Hemoglobin Concent 34.2 32.0-36.0 g/dL Red Cell Distribution Width 14.2 11.8-14.3 % Platelet Count 242 140-450 10^3/uL Mean Platelet Volume 8.1 6.9-10.8 fL Neutrophils (%) (Auto) 83.3 H 37.0-80.0 % Lymphocytes (%) (Auto) 11.2 10.0-50.0 % Monocytes (%) (Auto) 5.1 0.0-12.0 % Eosinophils (%) (Auto) 0.2 0.0-7.0 % Basophils (%) (Auto) 0.2 0.0-2.0 % Neutrophils # (Auto) 10.7 H 1.6-8.6 10 ^3/uL Lymphocytes # (Auto) 1.4 0.4-5.4 10 ^3/uL Monocytes # (Auto) 0.7 0-1.3 10 ^3/uL Eosinophils # (Auto) 0 0-0.8 10 ^3/uL Basophils # (Auto) 0 0-0.2 10 ^3/uL Nucleated Red Blood Cells 0.0 % Sodium Level 139 136-145 mmol/L Potassium Level 4.1 3.5-5.1 mmol/L Chloride Level 106 98-107 mmol/L Carbon Dioxide Level 24 20-31 mmol/L Anion Gap 9 5-15 Blood Urea Nitrogen 14 9-23 mg/dL Creatinine 1.04 0.700-1.30 mg/dL Glomerular Filtration Rate Calc 77 >90 mL/min BUN/Creatinine Ratio 13.5 10.0-20.0 Serum Glucose 138 H 74-106 mg/dL Hemoglobin A1c 6.2 H <5.7 % A1C Calcium Level 8.8 8.7-10.4 mg/dL Magnesium Level 2.0 1.6-2.6 mg/dL Total Bilirubin 0.8 0.2-1.0 mg/dL Aspartate Amino Transferase (AST) 19 13-40 U/L Alanine Aminotransferase (ALT) 12 7-40 U/L Alkaline Phosphatase 68 46-116 U/L Total Protein 6.5 5.7-8.2 g/dL Albumin 4.3 3.2-4.8 g/dL Triglycerides Level 90 < 150 mg/dL Cholesterol Level 135 < 200 mg/dL LDL Cholesterol 86 < 100 mg/dL HDL Cholesterol 40 40-59 mg/dL Thyroid Stimulating Hormone (TSH) 1.16 0.55-4.78 uIU/mL PROCEDURE(s): ANGAC - ANGIO AORTIC ABDOMINAL REASON: aortic aneurism ORDER NUMBER(s): [id number], ACCESSION NUMBER(s): [id number] ADDENDUM ADDENDUM # 1 Acute minimally displaced right femoral neck base fracture. Impression should instead state: Multifocal infrarenal abdominal aortic aneurysm with continuation of aneurysmal dilatation into the proximal bilateral common iliac arteries, [id number]-left. Extensive noncalcified mural thickening and atherosclerotic vascular calcifications throughout the aorta and major branching vessels. ORIGINAL REPORT Procedure: CT ANGIO AORTIC ABDOMINAL HISTORY: aortic aneurism Comparison Study: None Exam Date:05/27/2025 02:16 AM TECHNIQUE: CTA scanner volumetric data acquisition of abdomen and pelvis was obtained following intravenous administration of intravenous contrast without any reported adverse effects. Axial images were reconstructed and additional sagittal and coronal images were reformatted. arterial phase imaging were performed. Postprocessing was also performed on a Separate workstation. 3D images were performed on a dedicated workstation and reviewed for reporting. Radiation Dose : CT Dose: CTDI volume is 26.48 mGy. Dose-length product is 1578.11 mGy*cm FINDINGS: Vascular: Aortic measurements: aortic hiatus 29 mm and suprarenal abdominal aorta 24 mm. Multifocal saccular infrarenal abdominal aortic aneurysm measures 13.1 cm in craniocaudal dimension. The proximal moiety measures 6.5 x 5.7 cm transverse and the more distal moiety measures 5.6 x 5.0 cm transverse. Extensive noncalcified mural thickening with atherosclerotic plaque. There is aneurysmal dilatation of the proximal common iliac arteries measuring 5.3 x 4.6 cm on the right and 2.6 cm in diameter on the left. The mesenteric, and bilateral renal arteries are widely patent without any focal stenosis or aneurysm. Lung Bases: No acute or significant lung base finding. Normal heart size. No pleural or pericardial effusion. Liver: The liver is normal in size. No focal lesions. Normal hepatic vascular enhancement. Gallbladder and Biliary Tree: Unremarkable Spleen: Unremarkable Pancreas: The pancreas is normal in appearance without focal lesions or abnormal enhancement. Adrenal Glands: Unremarkable Kidneys: Kidneys demonstrate normal symmetric enhancement without focal lesions, calculi or hydronephrosis. Bladder: Unremarkable Bowel: The stomach is grossly normal in appearance. Small bowel and colon are normal in caliber and distribution. Normal appendix is normal. Ascites: Absent Lymphadenopathy: No mesenteric, retroperitoneal or periportal lymphadenopathy. Abdominal Wall and Mesentery: Unremarkable. Pelvic Organs: The prostate is enlarged, measuring 5.7 cm transverse. Musculoskeletal: No aggressive focal bony lesions, acute fractures or dislocation. IMPRESSION: 1. Multifocal infrarenal abdominal aortic aneurysm with continuation of Aneurysmal dilatation into the proximal bilateral common carotid arteries, [id number]-left. Extensive noncalcified mural thickening and at herosclerotic vascular calcifications throughout the aorta and major branching vessels. 2. Prostatomegaly. ATED BY: ALLISON URENA MD DICTATED DATE/TIME: 05/27/25 1501 SIGNED BY: ALLISON URENA MD SIGNED DATE/TIME: 05/27/25 1501 CC: Procedure: CT ANGIO AORTIC ABDOMINAL HISTORY: aortic aneurism Comparison Study: None Exam Date:05/27/2025 02:16 AM TECHNIQUE: CTA scanner volumetric data acquisition of abdomen and pelvis was obtained following intravenous administration of intravenous contrast without any reported adverse effects. Axial images were reconstructed and additional sagittal and coronal images were reformatted. arterial phase imaging were perf ormed. Postprocessing was also performed on a Separate workstation. 3D images were performed on a dedicated workstation and reviewed for reporting. Radiation Dose : CT Dose: CTDI volume is 26.48 mGy. Dose-length product is 1578.11 mGy*cm FINDINGS: Vascular: Aortic measurements: aortic hiatus 29 mm and suprarenal abdominal aorta 24 mm. Multifocal saccular infrarenal abdominal aortic aneurysm measures 13.1 cm in craniocaudal dimension. The proximal moiety measures 6.5 x 5.7 cm transverse and the more distal moiety measures 5.6 x 5.0 cm transverse. Extensive noncalcified mural thickening with atherosclerotic plaque. There is aneurysmal dilatation of the proximal common iliac arteries measuring 5.3 x 4.6 cm on the right and 2.6 cm in diameter on the left. The mesenteric, and bilateral renal arteries are widely patent without any focal stenosis or aneurysm. Lung Bases: No acute or significant lung base finding. Normal heart size. No pleural or pericardial effusion. Liver: The liver is normal in size. No focal lesions. Normal hepatic vascular enhancement. Gallbladder and Biliary Tree: Unremarkable Spleen: Unremarkable Pancreas: The pancreas is normal in appearance without focal lesions or abnormal enhancement. Adrenal Glands: Unremarkable Kidneys: Kidneys demonstrate normal symmetric enhancement without focal lesions, calculi or hydronephrosis. Bladder: Unremarkable Bowel: The stomach is grossly normal in appearance. Small bowel and colon are normal in caliber and distribution. Normal appendix is normal. Ascites: Absent Lymphadenopathy: No mesenteric, retroperitoneal or periportal lymphadenopathy. Abdominal Wall and Mesentery: Unremarkable. Pelvic Organs: The prostate is enlarged, measuring 5.7 cm transverse. Musculoskeletal: No aggressive focal bony lesions, acute fractures or dislocation. IMPRESSION: 1. Multifocal infrarenal abdominal aortic aneurysm with continuation of Aneurysmal dilatation into the proximal bilateral common carotid arteries, [id number]-left. Extensive noncalcified mural thickening and atherosclerotic vascular calcifications throughout the aorta and major branching vessels. 2. Prostatomegaly. ADDENDUM ADDENDUM # 1 Acute minimally displaced right femoral neck base fracture. Impression should instead state: Multifocal infrarenal abdominal aortic aneurysm with continuation of aneurysmal dilatation into the proximal bilateral common iliac arteries, [id number]-left. Extensive noncalcified mural thickening and atherosclerotic vascular calcifications throughout the aorta and major branching vessels. ORIGINAL REPORT Procedure: CT ANGIO AORTIC ABDOMINAL HISTORY: aortic aneurism Comparison Study: None Exam Date:05/27/2025 02:16 AM TECHNIQUE: CTA scanner volumetric data acquisition of abdomen and pelvis was obtained following intravenous administration of intravenous contrast without any reported adverse effects. Axial images were reconstructed and additional sagittal and coronal images were reformatted. arterial phase imaging were performed. Postprocessing was also performed on a Separate workstation. 3D images were performed on a dedicated workstation and reviewed for reporting. Radiation Dose : CT Dose: CTDI volume is 26.48 mGy. Dose-length product is 1578.11 mGy*cm FINDINGS: Vascular: Aortic measurements: aortic hiatus 29 mm and suprarenal abdominal aorta 24 mm. Multifocal saccular infrarenal abdominal aortic aneurysm measures 13.1 cm in craniocaudal dimension. The proximal moiety measures 6.5 x 5.7 cm transverse and the more distal moiety measures 5.6 x 5.0 cm transverse. Extensive noncalcified mural thickening with atherosclerotic plaque. There is aneurysmal dilatation of the proximal common iliac arteries measuring 5.3 x 4.6 cm on the right and 2.6 cm in diameter on the left. The mesenteric, and bilateral renal arteries are widely patent without any focal stenosis or aneurysm. Lung Bases: No acute or significant lung base finding. Normal heart size. No pleural or pericardial effusion. Liver: The liver is normal in size. No focal lesions. Normal hepatic vascular enhancement. Gallbladder and Biliary Tree: Unremarkable Spleen: Unremarkable Pancreas: The pancreas is normal in appearance without focal lesions or abnormal enhancement. Adrenal Glands: Unremarkable Kidneys: Kidneys demonstrate normal symmetric enhancement without focal lesions, calculi or hydronephrosis. Bladder: Unremarkable Bowel: The stomach is grossly normal in appearance. Small bowel and colon are normal in caliber and distribution. Normal appendix is normal. Ascites: Absent Lymphadenopathy: No mesenteric, retroperitoneal or periportal lymphadenopathy. Abdominal Wall and Mesentery: Unremarkable. Pelvic Organs: The prostate is enlarged, measuring 5.7 cm transverse. Musculoskeletal: No aggressive focal bony lesions, acute fractures or dislocation. IMPRESSION: 1. Multifocal infrarenal abdominal aortic aneurysm with continuation of Aneurysmal dilatation into the proximal bilateral common carotid arteries, [id number]-[id number]-left. Extensive noncalcified mural thickening and atherosclerotic vascular calcifications throughout the aorta and major branching vessels. 2. Prostatomegaly. ATED BY: ALLISON URENA MD DICTATED DATE/TIME: 05/27/25 150 SIGNED BY: ALLISON URENA MD SIGNED DATE/TIME: 05/27/25 150 CC: Procedure: CT ANGIO AORTIC ABDOMINAL HISTORY: aortic aneurism Comparison Study: None Exam Date:05/27/2025 02:16 AM TECHNIQUE: CTA scanner volumetric data acquisition of abdomen and pelvis was obtained following intravenous administration of intravenous contrast without any reported adverse effects. Axial images were reconstructed and additional sagittal and coronal images were reformatted. arterial phase imaging were performed. Postprocessing was also performed on a Separate workstation. 3D images were performed on a dedicated workstation and reviewed for reporting. Radiation Dose : CT Dose: CTDI volume is 26.48 mGy. Dose-length product is 1578.11 mGy*cm FINDINGS: Vascular: Aortic measurements: aortic hiatus 29 mm and suprarenal abdominal aorta 24 mm. Multifocal saccular infrarenal abdominal aortic aneurysm measures 13.1 cm in craniocaudal dimension. The proximal moiety measures 6.5 x 5.7 cm transverse and the more distal moiety measures 5.6 x 5.0 cm transverse. Extensive noncalcified mural thickening with atherosclerotic plaque. There is aneurysmal dilatation of the proximal common iliac arteries measuring 5.3 x 4.6 cm on the right and 2.6 cm in diameter on the left. The mesenteric, and bilateral renal arteries are widely patent without any focal stenosis or aneurysm. Lung Bases: No acute or significant lung base finding. Normal heart size. No pleural or pericardial effusion. Liver: The liver is normal in size. No focal lesions. Normal hepatic vascular enhancement. Gallbladder and Biliary Tree: Unremarkable Spleen: Unremarkable Pancreas: The pancreas is normal in appearance without focal lesions or abnormal enhancement. Adrenal Glands: Unremarkable Kidneys: Kidneys demonstrate normal symmetric enhancement without focal lesions, calculi or hydronephrosis. Bladder: Unremarkable Bowel: The stomach is grossly normal in appearance. Small bowel and colon are normal in caliber and distribution. Normal appendix is normal. Ascites: Absent Lymphadenopathy: No mesenteric, retroperitoneal or periportal lymphadenopathy. Abdominal Wall and Mesentery: Unremarkable. Pelvic Organs: The prostate is enlarged, measuring 5.7 cm transverse. Musculoskeletal: No aggressive focal bony lesions, acute fractures or dislocation. IMPRESSION: 1. Multifocal infrarenal abdominal aortic aneurysm with continuation of Aneurysmal dilatation into the proximal bilateral common carotid arteries, [id number]-left. Extensive noncalcified mural thickening and atherosclerotic vascular calcifications throughout the aorta and major branching vessels. 2. Prostatomegaly. Assessment 69-year-old male with a right femur fracture as well as a 6.5 infrarenal abdominal aortic aneurysm with bilateral common iliac aneurysms right side greater than left. Patient will require femur repair. We will review films with endovascular aortic stent graft company to evaluate for sizing of the placement of an EVAR. Based on how the patient responds post femur repair we will decide when the appropriate timing of surgery for the EVAR we will be performed. Discussed at length with the patient who would like to have this repaired during this hospitalization if possible I agree however would like to see how he responds to his initial orthopedic surgery. We will continue to follow Plan/Recommendation 69-year-old male with a right femur fracture as well as a 6.5 infrarenal abdominal aortic aneurysm with bilateral common iliac aneurysms right side greater than left. Patient will require femur repair. We will review films with endovascular aortic stent graft company to evaluate for sizing of the placement of an EVAR. Based on how the patient responds post femur repair we will decide when the appropriate timing of surgery for the EVAR we will be performed. Discussed at length with the patient who would like to have this repaired during this hospitalization if possible I agree however would like to see how he responds to his initial orthopedic surgery. We will continue to follow Plan discussed with: Patient ROULA CORDOBA Jr., MD May 27, 2025 18:53
[2025-05-27] MEDS: ACETAMINOPHEN 325 MG TAB PO PRN (20:20)
[2025-05-27 20:25] VITALS: PULSE 97; RESP 20; O2SAT 94
[2025-05-27 21:15] VITALS: BP 120/69; PULSE 47; RESP 17; TEMP 97.8; O2SAT 93
[2025-05-27 21:34] VITALS: BP 112/70; PULSE 98; RESP 18; TEMP 99.4; O2SAT 93
[2025-05-27] MEDS ORDERED: PATIENTS OWN MEDICATION (Simvastatin 1 TAB) PO SCH (22:00)
[2025-05-27] MEDS: ATORVASTATIN 20 MG TAB PO SCH (22:50)
[2025-05-28] VITALS (8 sets, daily range): BP systolic 103–135; BP diastolic 68–77; PULSE 65–93; RESP 17–21; TEMP 97.5–99.4; O2SAT 92–99
[2025-05-28] MEDS: HYDROcodone-ACET 5/325MG TAB PO PRN (02:56)
[2025-05-28 06:29] LABS: Hematocrit 41.7 % (41.0-53.0); Hemoglobin 14.4 g/dL (13.5-17.5); Mean Corpuscular Hemoglobin 28.5 pg (28.0-32.0); Mean Corpuscular Volume 82.4 fL (80.0-100.0); Nucleated Red Blood Cells % 0.1 %
[2025-05-28 06:38] LABS: INR 1.07 (0.9-1.15); Partial Thromboplastin Time 29.1 SEC (24.5-34.5); Prothrombin Time 11.3 sec (9.3-11.8)
[2025-05-28 06:48] LABS: Alanine Aminotransferase 11 U/L (7-40); Albumin 4.0 g/dL (3.2-4.8); Alkaline Phosphatase 59 U/L (46-116); Anion Gap 9 (5-15); BUN/Creatinine Ratio 13.7 (10.0-20.0); Blood Urea Nitrogen 14 mg/dL (9-23); Calcium 9.1 mg/dL (8.7-10.4); Carbon Dioxide 26 mmol/L (20-31); Chloride 105 mmol/L (98-107); Glucose 118 mg/dL (74-106); Potassium 4.0 mmol/L (3.5-5.1); Sodium 140 mmol/L (136-145); Total Protein 6.1 g/dL (5.7-8.2)
[2025-05-28 06:52] LABS: Bilirubin, Total 1.2 mg/dL (0.2-1.0)
[2025-05-28] MEDS: LISINOPRIL 20 MG TAB PO SCH (09:28)
[2025-05-28] MEDS: PANTOPRAZOLE 40 MG/10 ML VIAL INJ IV SCH (09:28)
--- NOTE | 2025-05-28 10:52 | DVHPN2 ---
Progress Note Date Seen: May 28, 2025 Medical Necessity Reason Pt with a Central, PICC or Fol: No Subjective Patient reports: No new complaints Review of Systems: HEENT:Normal, CVS:Normal, RESPIRATORY:Normal, GI:Normal, :Normal, MSK:Normal, NEURO:Normal Objective vital signs Vital Sign Date Time Temp Pulse Resp B/P (MAP) Pulse Ox O2 Delivery O2 Flow Rate FiO2 05/28/25 09:28 114/62 05/28/25 09:00 97.5 76 17 99 97.5 05/27/25 21:34 Room Air* 0 21 Total Intake and Output 05/27/25 05/27/25 05/28/25 15:00 23:00 07:00 Intake Total 300 ml 500 ml 100 ml Balance 300 ml 500 ml 100 ml medications Current Medications Medications Dose Ordered Sig/Juli Route Start Time Stop Time Status Last Admin Dose Admin Sodium Chloride 1,000 ml @ 100 mls/hr Q10H IV 05/27/25 12:00 05/28/25 08:00 100 MLS/HR Acetaminophen/ Hydrocodone Bitart 1 tab Q4HP PRN PO 05/27/25 12:00 05/28/25 02:56 1 TAB Ondansetron HCl 4 mg Q4HP PRN IV 05/27/25 12:00 Docusate Sodium 100 mg BIDPRN PRN PO 05/27/25 12:00 Acetaminophen 650 mg Q6HP PRN PO 05/27/25 12:00 05/27/25 20:20 650 MG Morphine Sulfate 2 mg Q4HPRN PRN IV 05/27/25 12:00 Nitroglycerin 0.4 mg Q5MINP PRN SL 05/27/25 12:00 Morphine Sulfate 2 mg Q30M PRN IV 05/27/25 12:00 Pantoprazole Sodium 40 mg DAILY IV 05/28/25 10:00 05/28/25 09:28 40 MG Amlodipine Besylate 5 mg DAILY PO 05/28/25 10:00 05/28/25 09:28 5 MG Lisinopril 40 mg DAILY PO 05/28/25 10:00 05/28/25 09:28 40 MG Patient Own Medication 1 tab HS PO 05/27/25 22:00 UNV Atorvastatin Calcium 10 mg HS PO 05/27/25 22:00 05/27/25 22:50 10 MG Examination: GENERAL:Normal, HEENT:Normal, NECK:Normal, LUNGS:Normal, CVS:Normal, ABDOMEN:Normal, MSK:Normal, MSK:Abnormal (right leg dressing), SKIN:Normal, NEURO:Normal, :Normal laboratory and microbiology Laboratory Tests 05/28/25 05:24 Test 05/28/25 05:24 Range/Units Serum Glucose 118 H 74-106 mg/dL Problem List/Assessment/Plan Problem List/Assessment/Plan #1 right hip fracture: surg in am #2 htn #3 obesity #4 AAA #5 tobacco abuse: advised to quit, refused patch- time spent 11 mins #6 prediabetes advance care planning- full code- time spent 17 mins Plan discussed with: Patient Date of Service: May 28, 2025 Billing Provider: GAVI TALLEY MD Common Visit Codes: 45849-[id number] INP/OBS CARE(HIGH) Secondary Visit Codes: 18079-[id number] CARE PLAN 30 MINUTES GAVI TALLEY MD May 28, 2025 10:52
--- NOTE | 2025-05-28 11:03 | DVH ---
CLINICAL INDICATION: pain TECHNIQUE: 1 radiographic views of the pelvis and 1 view of the right hip were obtained. Comparison: None FINDINGS/IMPRESSION: Acute minimally displaced fracture through the base of the right femoral neck is again visualized.
[2025-05-28] MEDS: MORPHINE SULFATE INJ 2 MG/ml SYRG IV PRN (13:28)
--- NOTE | 2025-05-28 16:03 | DVHSR ---
APPROVED REPORT EXAM: LIMITED Two-dimensional and M-mode echocardiogram with Doppler and color Doppler. Blood Pressure: 117/47 mmHg INDICATION Pre-Op Aortic Aneurysm DIMENSIONS LVDd5.2 (3.8-5.7cm)LA (2D)4.2 (1.9-4.0cm)Aortic Root3.7 (2.0-3.7cm) LVDs4.4 (2.5-4.0cm)LA (MM) (1.9-4.0cm)Aortic Cusp Exc2.0 (1.5-2.0cm) EF (%) 30.0 (55-70%)Rt. Atrium5.1 (1.9-4.0cm)Asc. Aorta cm IVSd1.2 (0.7-1.1cm)RV (D) (1.8-2.4cm) PWd1.2 (0.7-1.1cm) Mitral Valve MitralMitral Stenosis E wave0.70m/sMV Mean GR.mmHg A wave0.80m/sMV Peak GR.mmHg E/A ratio0.92D MVAcm2 Aortic Valve Aortic ValveAortic Stenosis V10.70m/Junito Mean GR.9mmHg V21.90m/Junito Peak GR.16mmHg LVOT Diameter2.5 (1.8-2.4cm)Doppler AVA1.81cm2 Pulmonic Valve V21.00m/s Tricuspid Valve TR Velocity2.80m/s [id number] Other Information Quality : Technically LimitedRhythm : Technically limited study due to body habitus. Conclusion Technically difficult study. Difficult acoustic windows. Left ventricular and left atrial enlargement. Concentric LVH. Mild aortic root enlargement. Dilati on of the sinuses of Valsalva. Valves appear to be structurally normal. EF of 35% with global hypokinesis with diminished RV function. Doppler reveals moderate tricuspid regurgitation. RVSP of 38-40 mmHg. No pericardial effusion masses or vegetations discernible.
[2025-05-29] VITALS (9 sets, daily range): BP systolic 108–122; BP diastolic 70–77; PULSE 62–102; RESP 13–20; TEMP 97.1–98.2; O2SAT 92–99
[2025-05-29 06:07] LABS: Hematocrit 41.4 % (41.0-53.0); Hemoglobin 14.1 g/dL (13.5-17.5); Mean Corpuscular Hemoglobin 28.1 pg (28.0-32.0); Mean Corpuscular Volume 82.3 fL (80.0-100.0); Nucleated Red Blood Cells % 0.0 %
[2025-05-29] MEDS: ceFAZolin 2 GM/D5W50ml 50 ML IV ONE (06:28)
[2025-05-29] MEDS: CELECOXIB 100 MG CAP PO ONE (06:45)
[2025-05-29] MEDS: ACETAMINOPHEN IV 1000 MG/100ML (10MG/ML) IV ONE (06:45)
[2025-05-29] MEDS: GABAPENTIN 300 MG CAP PO ONE (06:45)
[2025-05-29] MEDS: BUPIVACAINE HCL 50 ML ONE (07:03)
[2025-05-29] MEDS: BUPIVACAINE 0.25% INJ 50ML VIAL ONE (07:03)
[2025-05-29] MEDS ORDERED: fentaNYL CITRATE 100 MCG/2 ML VL ONE (07:07)
[2025-05-29] MEDS ORDERED: KETAMINE 50mg/ML 1ml syringe ONE (07:07)
[2025-05-29] MEDS ORDERED: LIDOCAINE 1% INJ PF 5ML AMP ONE (07:08)
[2025-05-29] MEDS ORDERED: ONDANSETRON HCL 4 MG/2 ML VIAL ONE (07:08)
[2025-05-29] MEDS ORDERED: KETOROLAC TROMETH 30 MG/ML 1ML VIAL ONE (07:08)
[2025-05-29] MEDS ORDERED: PROPOFOL 10 MG/ML 20 ML IV ONE ×2 (07:09→08:12)
[2025-05-29] MEDS ORDERED: GLYCOPYRROLATE 0.2 MG/ML 1ML VIAL ONE (07:09)
[2025-05-29] MEDS: BUPIVACAINE HCL 0.25% P/F 10 ML VIAL ONE (08:04)
[2025-05-29] MEDS ORDERED: BUPIVACAINE/DEXTROSE MPF 0.75% 2 ML AMP IT ONE (08:08)
[2025-05-29] MEDS ORDERED: hydrALAZINE HCL 20 MG/ML VL IV PRN (08:45)
[2025-05-29] MEDS ORDERED: fentaNYL CITRATE 100 MCG/2 ML VL IV PRN (08:45)
[2025-05-29] MEDS ORDERED: ONDANSETRON HCL 4 MG/2 ML VIAL IV PRN (08:45)
[2025-05-29] MEDS ORDERED: NALOXONE HCL 0.4 MG/ML VIAL IV PRN (08:45)
[2025-05-29] MEDS ORDERED: FLUMAZENIL 0.1 MG/ML INJ 10ML MDV IV PRN (08:45)
[2025-05-29] MEDS ORDERED: HYDROmorphone HCL 2 MG/ML VL/or syr IV PRN (08:45)
--- NOTE | 2025-05-29 09:15 | DVH ---
FLUOROSCOPY TIME: 55 seconds TECHNIQUE: Intraoperative radiographs of the right hip were obtained. COMPARISON: None FINDINGS: Refer to intraoperative report for further evaluation. IMPRESSION: Refer to intraoperative report for further evaluation.
[2025-05-29] MEDS: EMPAGLIFLOZIN 10 MG TAB PO SCH (10:00)
[2025-05-29] MEDS: LISINOPRIL 20 MG TAB PO SCH (10:18)
[2025-05-29] MEDS: DOCUSATE SOD 100 MG CAP PO ONE (10:45)
--- NOTE | 2025-05-29 11:49 | ECG ---
[facility] Test Date: 2025-05-28 Test Time: 21:54:25 Pat Name: DEVOAR MCKEON Department: Room: 0217T B Gender: M Correspondence Section Supervisor: abi : 1955 Requested By: GAVI TALLEY Order Number: [id number] Reading MD: Reddy Underwood Measurements Intervals [place] Rate: 104 P: 21 LA: 164 QRS: 4 QRSD: 97 T: -9 QT: 388 QTc: 511 Interpretive Statements Sinus tachycardia Multiform ventricular premature complexes Borderline T abnormalities, inferior leads Electronically Signed On 06-01-2025 21:38:45 PDT by Reddy Underwood Please click the below link to view image of tracing.
[2025-05-29] MEDS: ceFAZolin 2 GM/D5W50ml 50 ML IV SCH (14:00)
--- NOTE | 2025-05-29 16:56 | DVHPN2 ---
Subjective feels much better Changes from previous H/P or p: No Changes Eyes: No Pain, No Vision change, No Conjunctivae inflammation, No Eyelid inflammation, No Other, No Redness ENT: No Ear pain, No Ear discharge, No Nose pain, No Nose discharge, No Nose congestion, No Mouth pain, No Mouth swelling, No Throat pain, No Throat swelling, No Other Cardiovascular: No Chest Pain, No Palpitations, No Orthopnea, No Paroxysmal Noc. Dyspnea, No Edema, No Lt Headedness, No Other Respiratory: No Cough, No Dry, No Shortness of breath, No SOB with excertion, No Wheezing, No Hemoptysis, No Pleuritic Pain, No Sputum, No Other Gastrointestinal: No Nausea, No Vomiting, No Abdominal Pain, No Diarrhea, No Constipation, No Melena, No Hematochezia, No Other Genitourinary: No Dysuria, No Frequency, No Incontinence, No Hematuria, No Retention, No Other Musculoskeletal: No other, No neck pain, No shoulder pain, No arm pain, No back pain, No hand pain; leg pain (right); No foot pain Skin: No Rash, No Lesions, No Jaundice, No Bruising, No Other Objective Vitals Vital Signs Date Time Temp Pulse Resp B/P (MAP) Pulse Ox O2 Delivery O2 Flow Rate FiO2 05/29/25 13:00 97.1 62 16 108/75 (86) 92 97.1 05/29/25 08:35 Nasal Cannula 4.0 98 Intake/Output Intake and Output 05/29/25 07:00 Intake Total 1100 ml Output Total 1150 ml Balance -50 ml Intake Oral 0 ml IV Total 1100 ml Output Urine Total 1150 ml General Appearance: Alert, Oriented X3, No acute distress Cardiovascular: Regular rate, Normal S1, Normal S2 Abdomen: Normal bowel sounds, Soft, No tenderness, No hepatospenomegaly Musculoskeletal: Normal sensory function, Normal motor function Psych/Mental Status: Mental status NL Medications Current Medications Medications Dose Ordered Sig/Juli Route Start Time Stop Time Status Last Admin Dose Admin Sodium Chloride 1,000 ml @ 100 mls/hr Q10H IV 05/27/25 12:00 05/29/25 15:26 100 MLS/HR Acetaminophen/ Hydrocodone Bitart 1 tab Q4HP PRN PO 05/27/25 12:00 05/29/25 15:37 1 TAB Ondansetron HCl 4 mg Q4HP PRN IV 05/27/25 12:00 Acetaminophen 650 mg Q6HP PRN PO 05/27/25 12:00 05/27/25 20:20 650 MG Morphine Sulfate 2 mg Q4HPRN PRN IV 05/27/25 12:00 05/29/25 02:47 2 MG Nitroglycerin 0.4 mg Q5MINP PRN SL 05/27/25 12:00 Morphine Sulfate 2 mg Q30M PRN IV 05/27/25 12:00 Pantoprazole Sodium 40 mg DAILY IV 05/28/25 10:00 05/28/25 09:28 40 MG Patient Own Medication 1 tab HS PO 05/27/25 22:00 UNV Atorvastatin Calcium 10 mg HS PO 05/27/25 22:00 05/28/25 21:29 10 MG Lisinopril 20 mg DAILY PO 05/29/25 10:00 05/29/25 10:18 20 MG Empaglifozin 10 mg DAILY PO 05/29/25 10:00 Cefazolin Sodium/ Dextrose 50 ml @ 50 mls/hr Q8HR IV 05/29/25 14:00 05/30/25 06:59 05/29/25 14:00 50 MLS/HR Docusate Sodium 100 mg BID PO 05/29/25 22:00 Laboratory Results Laboratory Tests 05/28/25 05:24 05/29/25 05:30 Urinalysis Test 05/27/25 14:00 Urine Color Yellow (Yellow) Urine Clarity Clear (Clear) Urine pH 5.5 (5.0-9.0) Urine Specific [place] 1.049 (1.001-1.035) Urine Protein Negative (Negative) Urine Ketones 1+ (Negative) H Urine Blood Negative /uL (Negative) Urine Nitrite Negative (Negative) Urine Bilirubin Negative (Negative) Urine Urobilinogen Normal mg/dL (Negative) Urine Leukocyte Esterase Negative /uL (Negative) Urine RBC 2 /hpf (0 - 3) Urine Microscopic WBC 1 /HPF (0-3) Urine Squamous Epithelial Cells Few /hpf (<5) Urine Bacteria Few /hpf (None Seen) H Urine Glucose Normal mg/dL (Normal) Labs and/or images reviewed: Labs reviewed by me, Image(s) reviewed by me Assessment/Plan Assessment/Plan s/p rt hip fracture- s/p orif aortic aneurysm- await stent on 06/02/25 Plan discussed with: Patient My Orders Orders - MINERVA CARY MD Procedure Category Date Status Time Complete Blood Count LAB 05/30/25 Verified 04:00 Comprehensive LAB 05/30/25 Verified Metabolic Panel 04:00 Docusate Sodium PHA 05/29/25 In Process Capsule ([place] 22:00 Date of Service: May 29, 2025 Billing Provider: MINERVA CARY MD Common Visit Codes: [id number] INP/OBS CARE(MOD) MINERVA CARY MD May 29, 2025 16:56
[2025-05-29] MEDS: DOCUSATE SOD 100 MG CAP PO SCH (21:35)
[2025-05-30] VITALS (8 sets, daily range): BP systolic 120–138; BP diastolic 77–91; PULSE 54–84; RESP 18–20; TEMP 97.6–98.1; O2SAT 96–98
[2025-05-30 05:54] LABS: Hematocrit 40.0 % (41.0-53.0); Hemoglobin 14.1 g/dL (13.5-17.5); Mean Corpuscular Hemoglobin 28.6 pg (28.0-32.0); Mean Corpuscular Volume 81.1 fL (80.0-100.0); Nucleated Red Blood Cells % 0.1 %
[2025-05-30 06:11] LABS: Alanine Aminotransferase 11 U/L (7-40); Albumin 4.0 g/dL (3.2-4.8); Alkaline Phosphatase 63 U/L (46-116); Anion Gap 11 (5-15); BUN/Creatinine Ratio 19.4 (10.0-20.0); Bilirubin, Total 0.6 mg/dL (0.2-1.0); Blood Urea Nitrogen 19 mg/dL (9-23); Calcium 9.1 mg/dL (8.7-10.4); Carbon Dioxide 23 mmol/L (20-31); Chloride 106 mmol/L (98-107); Potassium 3.8 mmol/L (3.5-5.1); Sodium 140 mmol/L (136-145); Total Protein 6.2 g/dL (5.7-8.2)
[2025-05-30 06:19] LABS: Glucose 163 mg/dL (74-106)
--- NOTE | 2025-05-30 14:13 | DVHPN2 ---
Progress Note Date Seen: May 30, 2025 Has the PT tested + for MRSA If YES, has PT been informed?: No Medical Necessity Reason Pt with a Central, PICC or Fol: No Subjective Patient reports: Other (Appropriate pain post hip surgery.) Review of Systems: HEENT:Normal, CVS:Normal, RESPIRATORY:Normal, GI:Normal, :Normal, MSK:Normal, NEURO:Normal Objective vital signs Vital Sign Date Time Temp Pulse Resp B/P (MAP) Pulse Ox O2 Delivery O2 Flow Rate FiO2 05/30/25 13:00 97.9 63 18 121/77 (92) 98 97.9 05/30/25 07:59 Room Air* 0 21 Total Intake and Output 05/29/25 05/29/25 05/30/25 15:00 23:00 07:00 Intake Total 775 ml 400 ml Output Total 400 ml Balance 775 ml 0 ml medications Current Medications Medications Dose Ordered Sig/Juli Route Start Time Stop Time Status Last Admin Dose Admin Sodium Chloride 1,000 ml @ 100 mls/hr Q10H IV 05/27/25 12:00 05/30/25 09:13 100 MLS/HR Acetaminophen/ Hydrocodone Bitart 1 tab Q4HP PRN PO 05/27/25 12:00 05/30/25 10:21 1 TAB Ondansetron HCl 4 mg Q4HP PRN IV 05/27/25 12:00 Acetaminophen 650 mg Q6HP PRN PO 05/27/25 12:00 05/27/25 20:20 650 MG Morphine Sulfate 2 mg Q4HPRN PRN IV 05/27/25 12:00 05/29/25 02:47 2 MG Nitroglycerin 0.4 mg Q5MINP PRN SL 05/27/25 12:00 Morphine Sulfate 2 mg Q30M PRN IV 05/27/25 12:00 Pantoprazole Sodium 40 mg DAILY IV 05/28/25 10:00 05/28/25 09:28 40 MG Patient Own Medication 1 tab HS PO 05/27/25 22:00 UNV Atorvastatin Calcium 10 mg HS PO 05/27/25 22:00 05/29/25 21:35 10 MG Lisinopril 20 mg DAILY PO 05/29/25 10:00 05/30/25 09:13 20 MG Empaglifozin 10 mg DAILY PO 05/29/25 10:00 Docusate Sodium 100 mg BID PO 05/29/25 22:00 Examination: GENERAL:Normal, HEENT:Normal, NECK:Normal, LUNGS:Normal, CVS:Normal, ABDOMEN:Normal, MSK:Normal, SKIN:Normal, NEURO:Normal, :Normal laboratory and microbiology Laboratory Tests 05/30/25 05:22 Test 05/30/25 05:22 Range/Units Serum Glucose 163 H 74-106 mg/dL Problem List/Assessment/Plan Problems(with codes): (1) Aortic aneurysm Problem List/Assessment/Plan Plan will be to perform EVAR on SundayJune 02. Patient is aware of the procedure and the risks benefits of the procedure. Plan discussed with: Patient Dietary Evaluation Review Recommendations by RD: Dietary education by RD Comments: 1) Add 60g CCHO restriction to cardiac diet d/t elevated HbA1c 2) Encourage optimal PO intake 3) Advise patient to limit intake of added sugar included sugar-sweetened beverages, desserts, candy, etc. 4) Refer to outpatient RD/CDCES for weight management 5) Follow-up with orthopedic surgeon, PT, and cardiology 6) Continue to monitor I&O, labs, and skin integrity Expected Outcomes/Goals: 1) appetite and labs to improve 2) gradual wt loss 2) f/u in 3-5 days ROULA CORDOBA Jr., MD May 30, 2025 14:13
--- NOTE | 2025-05-30 16:48 | DVHPN2 ---
Subjective feels much better Changes from previous H/P or p: No Changes Eyes: No Pain, No Vision change, No Conjunctivae inflammation, No Eyelid inflammation, No Other, No Redness ENT: No Ear pain, No Ear discharge, No Nose pain, No Nose discharge, No Nose congestion, No Mouth pain, No Mouth swelling, No Throat pain, No Throat swelling, No Other Cardiovascular: No Chest Pain, No Palpitations, No Orthopnea, No Paroxysmal Noc. Dyspnea, No Edema, No Lt Headedness, No Other Respiratory: No Cough, No Dry, No Shortness of breath, No SOB with excertion, No Wheezing, No Hemoptysis, No Pleuritic Pain, No Sputum, No Other Gastrointestinal: No Nausea, No Vomiting, No Abdominal Pain, No Diarrhea, No Constipation, No Melena, No Hematochezia, No Other Genitourinary: No Dysuria, No Frequency, No Incontinence, No Hematuria, No Retention, No Other Musculoskeletal: No other, No neck pain, No shoulder pain, No arm pain, No back pain, No hand pain; leg pain (right); No foot pain Skin: No Rash, No Lesions, No Jaundice, No Bruising, No Other Objective Vitals Vital Signs Date Time Temp Pulse Resp B/P (MAP) Pulse Ox O2 Delivery O2 Flow Rate FiO2 05/30/25 13:00 97.9 63 18 121/77 (92) 98 97.9 05/30/25 07:59 Room Air* 0 21 Intake/Output Intake and Output 05/30/25 07:00 Intake Total 1175 ml Output Total 400 ml Balance 775 ml Intake Oral 1125 ml IV Total 50 ml Output Urine Total 400 ml # Voids 3 General Appearance: Alert, Oriented X3, No acute distress Cardiovascular: Regular rate, Normal S1, Normal S2 Abdomen: Normal bowel sounds, Soft, No tenderness, No hepatospenomegaly Musculoskeletal: Normal sensory function, Normal motor function Psych/Mental Status: Mental status NL Medications Current Medications Medications Dose Ordered Sig/Juli Route Start Time Stop Time Status Last Admin Dose Admin Patient Own Medication 1 tab HS PO 05/27/25 22:00 UNV Atorvastatin Calcium 10 mg HS PO 05/27/25 22:00 05/29/25 21:35 10 MG Lisinopril 20 mg DAILY PO 05/29/25 10:00 05/30/25 09:13 20 MG Docusate Sodium 100 mg BID PO 05/29/25 22:00 Acetaminophen/ Hydrocodone Bitart 1 tab Q6HP PO 05/30/25 17:00 UNV Laboratory Results Laboratory Tests 05/30/25 05:22 Chemistry Test 05/30/25 05:22 Albumin 4.0 g/dL (3.2-4.8) Calcium Level 9.1 mg/dL (8.7-10.4) Total Protein 6.2 g/dL (5.7-8.2) LFT Test 05/30/25 05:22 Alanine Aminotransferase (ALT) 11 U/L (7-40) Alkaline Phosphatase 63 U/L (46-116) Aspartate Amino Transferase (AST) 26 U/L (13-40) Total Bilirubin 0.6 mg/dL (0.2-1.0) Urinalysis Test 05/27/25 14:00 Urine Color Yellow (Yellow) Urine Clarity Clear (Clear) Urine pH 5.5 (5.0-9.0) Urine Specific [place] 1.049 (1.001-1.035) Urine Protein Negative (Negative) Urine Ketones 1+ (Negative) H Urine Blood Negative /uL (Negative) Urine Nitrite Negative (Negative) Urine Bilirubin Negative (Negative) Urine Urobilinogen Normal mg/dL (Negative) Urine Leukocyte Esterase Negative /uL (Negative) Urine RBC 2 /hpf (0 - 3) Urine Microscopic WBC 1 /HPF (0-3) Urine Squamous Epithelial Cells Few /hpf (<5) Urine Bacteria Few /hpf (None Seen) H Urine Glucose Normal mg/dL (Normal) Labs and/or images reviewed: Labs reviewed by me, Image(s) reviewed by me Assessment/Plan Assessment/Plan s/p rt hip fracture- s/p orif aortic aneurysm- await stent on 06/02/25 cardiomyopathy Plan discussed with: Patient, Other My Orders Orders - MINERVA CARY MD Procedure Category Date Status Time Notify Provider NOTICE 05/30/25 Transmitted Malnutrition 12:25 Dietary Education By JESUS 05/30/[address] 12:25 Dietary NOTICE 05/30/25 Transmitted Recommendations 12:25 Hydrocodone-Acet PHA 05/30/25 Logged 5/325mg Tab ([place] 17:00 Date of Service: May 30, 2025 Billing Provider: MINERVA CARY MD Common Visit Codes: [id number] INP/OBS CARE(MOD) MINERVA CARY MD May 30, 2025 16:48
[2025-05-30] MEDS ORDERED: HYDROcodone-ACET 5/325MG TAB PO SCH (17:00)
[2025-05-30] MEDS: HYDROcodone-ACET 5/325MG TAB PO SCH (17:21)
[2025-05-31] VITALS (8 sets, daily range): BP systolic 122–142; BP diastolic 30–83; PULSE 52–78; RESP 17–20; TEMP 97.7–98.6; O2SAT 95–99
[2025-05-31 08:00] LABS: Hematocrit 41.9 % (41.0-53.0); Hemoglobin 14.7 g/dL (13.5-17.5); Mean Corpuscular Hemoglobin 28.6 pg (28.0-32.0); Mean Corpuscular Volume 81.7 fL (80.0-100.0); Nucleated Red Blood Cells % 0.1 %
--- NOTE | 2025-05-31 09:40 | DVHPN2 ---
Subjective feels much better Changes from previous H/P or p: No Changes Eyes: No Pain, No Vision change, No Conjunctivae inflammation, No Eyelid inflammation, No Other, No Redness ENT: No Ear pain, No Ear discharge, No Nose pain, No Nose discharge, No Nose congestion, No Mouth pain, No Mouth swelling, No Throat pain, No Throat swelling, No Other Cardiovascular: No Chest Pain, No Palpitations, No Orthopnea, No Paroxysmal Noc. Dyspnea, No Edema, No Lt Headedness, No Other Respiratory: No Cough, No Dry, No Shortness of breath, No SOB with excertion, No Wheezing, No Hemoptysis, No Pleuritic Pain, No Sputum, No Other Gastrointestinal: No Nausea, No Vomiting, No Abdominal Pain, No Diarrhea, No Constipation, No Melena, No Hematochezia, No Other Genitourinary: No Dysuria, No Frequency, No Incontinence, No Hematuria, No Retention, No Other Musculoskeletal: No other, No neck pain, No shoulder pain, No arm pain, No back pain, No hand pain; leg pain (right); No foot pain Skin: No Rash, No Lesions, No Jaundice, No Bruising, No Other Objective Vitals Vital Signs Date Time Temp Pulse Resp B/P (MAP) Pulse Ox O2 Delivery O2 Flow Rate FiO2 05/31/25 05:00 97.7 52 18 123/73 (90) 99 97.7 05/30/25 20:00 Room Air* 0 21 Intake/Output Intake and Output 05/31/25 07:00 Intake Total 1250 ml Output Total 1275 ml Balance -25 ml Intake Oral 1150 ml IV Total 100 ml Output Urine Total 1275 ml General Appearance: Alert, Oriented X3, No acute distress Cardiovascular: Regular rate, Normal S1, Normal S2 Abdomen: Normal bowel sounds, Soft, No tenderness, No hepatospenomegaly Musculoskeletal: Normal sensory function, Normal motor function Psych/Mental Status: Mental status NL Medications Current Medications Medications Dose Ordered Sig/Juli Route Start Time Stop Time Status Last Admin Dose Admin Patient Own Medication 1 tab HS PO 05/27/25 22:00 UNV Atorvastatin Calcium 10 mg HS PO 05/27/25 22:00 05/30/25 21:31 10 MG Lisinopril 20 mg DAILY PO 05/29/25 10:00 05/30/25 09:13 20 MG Docusate Sodium 100 mg BID PO 05/29/25 22:00 Acetaminophen/ Hydrocodone Bitart 1 tab Q6HR PO 05/30/25 18:00 05/31/25 05:26 1 TAB Laboratory Results Laboratory Tests 05/30/25 05:22 05/31/25 07:47 Urinalysis Test 05/27/25 14:00 Urine Color Yellow (Yellow) Urine Clarity Clear (Clear) Urine pH 5.5 (5.0-9.0) Urine Specific [place] 1.049 (1.001-1.035) Urine Protein Negative (Negative) Urine Ketones 1+ (Negative) H Urine Blood Negative /uL (Negative) Urine Nitrite Negative (Negative) Urine Bilirubin Negative (Negative) Urine Urobilinogen Normal mg/dL (Negative) Urine Leukocyte Esterase Negative /uL (Negative) Urine RBC 2 /hpf (0 - 3) Urine Microscopic WBC 1 /HPF (0-3) Urine Squamous Epithelial Cells Few /hpf (<5) Urine Bacteria Few /hpf (None Seen) H Urine Glucose Normal mg/dL (Normal) Labs and/or images reviewed: Labs reviewed by me, Image(s) reviewed by me Assessment/Plan Assessment/Plan s/p rt hip fracture- s/p orif/pain control aortic aneurysm- await stent on 06/02/25 cardiomyopathy- dvt prophylaxis Plan discussed with: Patient, Other My Orders Orders - MINERVA CARY MD Procedure Category Date Status Time Notify Provider NOTICE 05/30/25 Transmitted Malnutrition 12:25 Dietary Education By JESUS 05/30/[address] 12:25 Dietary NOTICE 05/30/25 Transmitted Recommendations 12:25 Hydrocodone-Acet PHA 05/30/25 In Process 5/325mg Tab ([place] 18:00 Date of Service: May 31, 2025 Billing Provider: MINERVA CARY MD Common Visit Codes: [id number] INP/OBS CARE(MOD) MINERVA CARY MD May 31, 2025 09:40
[2025-05-31] MEDS ORDERED: ENOXAPARIN SOD 30 MG/0.3 ML SYRINGE SC ONE (09:45)
[2025-05-31] MEDS ORDERED: LACTULOSE 20Gm/30ML SOLN PO ONE (10:00)
[2025-05-31] MEDS: LACTULOSE 20Gm/30ML SOLN PO SCH (10:12)
[2025-05-31] MEDS: ENOXAPARIN SOD 30 MG/0.3 ML SYRINGE SC SCH (10:13)
[2025-05-31] MEDS: HYDROcodone-ACET 5/325MG TAB PO SCH (11:42)
[2025-06-01] VITALS (8 sets, daily range): BP systolic 119–144; BP diastolic 77–94; PULSE 60–91; RESP 17–18; TEMP 97.6–98.3; O2SAT 92–96
--- NOTE | 2025-06-01 08:42 | ECG ---
[facility] Test Date: 2025-05-27 Test Time: 11:19:15 Pat Name: DEVORA MCKEON Department: ER Room: 0217T B Gender: M Surgical Device Sales Representative: LELAND : 1955 Requested By: GEORGINA FRANCO Order Number: [id number] Reading MD: Reddy Underwood Measurements Intervals [place] Rate: 92 P: 48 SD: 157 QRS: 31 QRSD: 95 T: 23 QT: 355 QTc: 440 Interpretive Statements Sinus rhythm Multiform ventricular premature complexes Borderline T wave abnormalities Electronically Signed On 06-01-2025 21:54:26 PDT by Reddy Underwood Please click the below link to view image of tracing.
--- NOTE | 2025-06-01 11:09 | DVHDS2 ---
Discharge Summary Date of Admission May 27, 2025 at 11:49 Date of Discharge: Jun 01, 2025 Labs/Diagnostic Data: Laboratory Results Test 05/31/25 07:47 05/30/25 05:22 05/28/25 05:24 05/27/25 14:00 White Blood Count 7.9 10^3/uL (4.4-10.8) Red Blood Count 5.13 10^6/uL (4.5-5.90) Hemoglobin 14.7 g/dL (13.5-17.5) Hematocrit 41.9 % (41.0-53.0) Mean Corpuscular Volume 81.7 fL (80.0-100.0) Mean Corpuscular Hemoglobin 28.6 pg (28.0-32.0) Mean Corpuscular Hemoglobin Concent 35.1 g/dL (32.0-36.0) Red Cell Distribution Width 14.3 % (11.8-14.3) Platelet Count 216 10^3/uL (140-450) Mean Platelet Volume 7.9 fL (6.9-10.8) Neutrophils (%) (Auto) 70.3 % (37.0-80.0) Lymphocytes (%) (Auto) 19.8 % (10.0-50.0) Monocytes (%) (Auto) 7.1 % (0.0-12.0) Eosinophils (%) (Auto) 2.3 % (0.0-7.0) Basophils (%) (Auto) 0.5 % (0.0-2.0) Neutrophils # (Auto) 5.6 10 ^3/uL (1.6-8.6) Lymphocytes # (Auto) 1.6 10 ^3/uL (0.4-5.4) Monocytes # (Auto) 0.6 10 ^3/uL (0-1.3) Eosinophils # (Auto) 0.2 10 ^3/uL (0-0.8) Basophils # (Auto) 0 10 ^3/uL (0-0.2) Nucleated Red Blood Cells 0.1 % Potassium Level 3.8 mmol/L (3.5-5.1) Sodium Level 140 mmol/L (136-145) Chloride Level 106 mmol/L (98-107) Carbon Dioxide Level 23 mmol/L (20-31) Anion Gap 11 (5-15) Blood Urea Nitrogen 19 mg/dL (9-23) Creatinine 0.98 mg/dL (0.700-1.30) Glomerular Filtration Rate Calc 83 mL/min (>90) BUN/Creatinine Ratio 19.4 (10.0-20.0) Serum Glucose 163 mg/dL (74-106) Calcium Level 9.1 mg/dL (8.7-10.4) Total Bilirubin 0.6 mg/dL (0.2-1.0) Aspartate Amino Transferase (AST) 26 U/L (13-40) Alanine Aminotransferase (ALT) 11 U/L (7-40) Alkaline Phosphatase 63 U/L (46-116) Total Protein 6.2 g/dL (5.7-8.2) Albumin 4.0 g/dL (3.2-4.8) Prothrombin Time 11.3 sec (9.3-11.8) Prothrombin Time INR 1.07 (0.9-1.15) Activated Partial Thromboplast Time 29.1 SEC (24.5-34.5) Urine Color Yellow (Yellow) Urine Clarity Clear (Clear) Urine pH 5.5 (5.0-9.0) Urine Specific [place] 1.049 (1.001-1.035) Urine Protein Negative (Negative) Urine Ketones 1+ (Negative) Urine Blood Negative /uL (Negative) Urine Nitrite Negative (Negative) Urine Bilirubin Negative (Negative) Urine Urobilinogen Normal mg/dL (Negative) Urine Leukocyte Esterase Negative /uL (Negative) Urine RBC 2 /hpf (0 - 3) Urine Microscopic WBC 1 /HPF (0-3) Urine Squamous Epithelial Cells Few /hpf (<5) Urine Bacteria Few /hpf (None Seen) Urine Glucose Normal mg/dL (Normal) Test 05/27/25 01:50 Hemoglobin A1c 6.2 % A1C (<5.7) Magnesium Level 2.0 mg/dL (1.6-2.6) Triglycerides Level 90 mg/dL (< 150) Cholesterol Level 135 mg/dL (< 200) LDL Cholesterol 86 mg/dL (< 100) HDL Cholesterol 40 mg/dL (40-59) Thyroid Stimulating Hormone (TSH) 1.16 uIU/mL (0.55-4.78) Other Laboratory Tests 05/31/25 07:47 05/30/25 05:22 Brief Hx & Hospital Course: see dictated note Condition at Discharge: Fair Final Diagnosis/Problems List hip fracture AAA Discharge Disposition: Acute Care Facility Discharge Instruct/Medications Diet: Cardiac 2g Na,low cholest Activity: No Restrictions, As Tolerated Follow Up/Referral: fu with rai Medications: per mar Scheduled Amlodipine Besylate (Amlodipine Besylate), 1 TAB PO DAILY, (Reported) Lisinopril (Lisinopril), 1 TAB PO DAILY, (Reported) Pantoprazole Sodium Sesquihydr (Pantoprazole Sodium), 1 TAB PO DAILY, (Reported) Simvastatin (Simvastatin), 1 TAB PO HS, (Reported) Discharge Statement: "Patient was advised to return to the ER or call 911 if any headaches, dizziness, shortness of breath, chest pain, abdominal pain, bleeding, fevers, or worsening of medical condition. Patient was counseled about treatment plan, medications, possible side effects, patientverbalized understanding. All questions were answered to the best of my ability. This discharge took greater then 30 minutes in planning, reviewing documentation, counseling the patient, and discussing with other team members." ASSESSMENT ASSESSMENT Assessment hip fracture AAA Date of Service: Jun 01, 2025 Billing Provider: GAVI TALLEY MD Common Visit Codes: [id number] DISCH DAY >30min Secondary Visit Codes: [id number] CARE PLAN 30 MINUTES GAVI TALLEY MD Jun 01, 2025 11:09
--- NOTE | 2025-06-01 11:28 | DVHDS ---
DATE OF DISCHARGE: 06/01/2025 TRANSFER SUMMARY HISTORY OF PRESENT ILLNESS: The patient is a 69-year-old gentleman who was admitted after a fall with subsequent pain to the right leg. He has a history of hypertension, hyperlipidemia, and GERD. HOSPITAL COURSE: The patient had a pelvic CT that showed acute displaced fracture of the right femoral neck along with aortic aneurysm. The patient had abdominal angiography that showed multifocal saccular infrarenal abdominal aortic aneurysm, measuring the proximal moiety was 6.5 x 5.7 and the more distal moiety was 5.6 x 5 cm in transverse. The patient also had aneurysmal dilatation of proximal common iliac arteries as well as on the right and the left. The patient was seen in orthopedic consult by Dr. Castaneda as well as vascular surgical consult by Dr. Daniel. The patient underwent surgery on his right hip on 05/29/2025. Echocardiogram done showed ejection fraction of 35% with global hypokinesis. He was seen in cardiology consult by Dr. Underwood. The patient was offered ischemic workup, which he refused. The patient will now be transferred to [place] for further management. FINAL DIAGNOSES: * Right hip fracture status post surgery. * Hypertension. * Obesity. * Abdominal aortic aneurysm along with iliac aneurysms. * Chronic systolic heart failure. * Tobacco abuse. * Prediabetes. Time spent in discharge planning and review of plan with the patient, nursing, and manager social was 39 minutes. MD GOYO Roman/CASSIA TID: [id number] RECEIPT: [id number]
[2025-06-02] VITALS (15 sets, daily range): BP systolic 109–141; BP diastolic 69–93; PULSE 54–131; RESP 10–20; TEMP 97.6–98.9; O2SAT 93–99
--- NOTE | 2025-06-02 09:33 | DVHPN2 ---
Progress Note Date Seen: Jun 02, 2025 Has the PT tested + for MRSA If YES, has PT been informed?: No Medical Necessity Reason Pt with a Central, PICC or Fol: No Subjective Patient reports: No new complaints Review of Systems: HEENT:Normal, CVS:Normal, RESPIRATORY:Normal, GI:Normal, :Normal, MSK:Normal, NEURO:Normal Objective vital signs Vital Sign Date Time Temp Pulse Resp B/P (MAP) Pulse Ox O2 Delivery O2 Flow Rate FiO2 06/02/25 09:30 135/78 06/02/25 05:00 98.9 54 18 97 98.9 06/01/25 20:00 Room Air* 0 21 Total Intake and Output 06/01/25 06/01/25 06/02/25 15:00 23:00 07:00 Intake Total 400 ml 0 ml Output Total 800 ml 700 ml Balance -400 ml -700 ml medications Current Medications Medications Dose Ordered Sig/Juli Route Start Time Stop Time Status Last Admin Dose Admin Patient Own Medication 1 tab HS PO 05/27/25 22:00 UNV Atorvastatin Calcium 10 mg HS PO 05/27/25 22:00 06/01/25 22:24 10 MG Lisinopril 20 mg DAILY PO 05/29/25 10:00 06/01/25 08:52 20 MG Docusate Sodium 100 mg BID PO 05/29/25 22:00 Acetaminophen/ Hydrocodone Bitart 1 tab Q6HR PO 05/31/25 12:00 06/02/25 00:30 1 TAB Lactulose 30 ml BID PO 05/31/25 10:00 06/01/25 08:57 30 ML Examination: GENERAL:Normal, HEENT:Normal, NECK:Normal, LUNGS:Normal, CVS:Normal, ABDOMEN:Normal, MSK:Normal, MSK:Abnormal (right leg dressing), SKIN:Normal, NEURO:Normal, :Normal laboratory and microbiology Laboratory Tests 05/31/25 07:47 05/30/25 05:22 Test 05/30/25 05:22 Range/Units Serum Glucose 163 H 74-106 mg/dL Problem List/Assessment/Plan Problem List/Assessment/Plan #1 right hip fracture: s/p surg #2 htn #3 obesity #4 AAA: repair today #5 tobacco abuse: advised to quit, refused patch- time spent 11 mins #6 prediabetes advance care planning- full code- time spent 17 mins Plan discussed with: Patient My Orders My Orders Orders - GAVI TALLEY MD Procedure Category Date Status Time Npo (Nothing By DIET 06/02/25 Transmitted Mouth) Diet Breakfast Discharge DISCHARGE 06/01/25 Transmitted 11:06 * [employer] CONS 06/01/25 Transmitted Consult Basic Metabolic Panel LAB 06/02/25 Logged 06:00 Complete Blood Count LAB 06/02/25 Logged 06:00 Dietary Evaluation Review Recommendations by RD: Dietary education by RD Comments: 1) Add 60g CCHO restriction to cardiac diet d/t elevated HbA1c 2) Encourage optimal PO intake 3) Advise patient to limit intake of added sugar included sugar-sweetened beverages, desserts, candy, etc. 4) Refer to outpatient RD/CDCES for weight management 5) Follow-up with orthopedic surgeon, PT, and cardiology 6) Continue to monitor I&O, labs, and skin integrity Expected Outcomes/Goals: 1) appetite and labs to improve 2) gradual wt loss 2) f/u in 3-5 days Date of Service: Jun 02, 2025 Billing Provider: GAVI TALLEY MD Common Visit Codes: [id number] INP/OBS CARE(HIGH) Secondary Visit Codes: [id number] CARE PLAN 30 MINUTES GAVI TALLEY MD Jun 02, 2025 09:33
[2025-06-02 11:08] LABS: Chloride 102 mmol/L (98-107); Hematocrit 44.5 % (41.0-53.0); Hemoglobin 15.5 g/dL (13.5-17.5); Mean Corpuscular Hemoglobin 28.2 pg (28.0-32.0); Mean Corpuscular Volume 80.8 fL (80.0-100.0); Nucleated Red Blood Cells % 0.1 %; Potassium 4.1 mmol/L (3.5-5.1); Sodium 137 mmol/L (136-145)
[2025-06-02 11:09] LABS: Anion Gap 9 (5-15); Carbon Dioxide 26 mmol/L (20-31)
[2025-06-02 11:10] LABS: Calcium 8.7 mg/dL (8.7-10.4)
[2025-06-02 11:14] LABS: BUN/Creatinine Ratio 16.0 (10.0-20.0); Blood Urea Nitrogen 13 mg/dL (9-23)
[2025-06-02 11:15] LABS: Glucose 107 mg/dL (74-106)
--- NOTE | 2025-06-02 12:43 | DVHOP2 ---
Operative Report - 2 Report Details Date: 05/29/25 Preop Diagnosis: Right hip femoral neck fracture Postop Diagnosis: Right hip femoral neck fracture Surgeon: Hever Castaneda MD Anesthesiologist: Santos FOUNTAIN Anesthesia: Regional Implant: Simplifix 7.3 screw x 2 locking proximal screw Consent: The patient was informed of the risks and benefits of the procedure. These include but are not limited to complications of anesthesia, postoperative infection, incomplete relief of symptoms, recurrence of symptoms, damage to blood vessels, nerves and tendons, deep venous thrombosis, pulmonary embolism and possible need for repeat surgery in the future. Estimated Blood Loss: 5 cc Indications for Surgery: min displaced right femoral neck fracture Name of Procedure Performed 1. Open reduction internal fixation of right hip femoral neck fracture; 2. Intraop fluoroscopy Procedure Details Procedure Details: The patient was brought to the operating room, placed supine on a fracture table, and general/spinal anesthesia was administered. All bony prominences were padded appropriately. The operative right leg was placed in a traction boot, and the left leg was abducted and padded. Using fluoroscopic guidance, closed reduction of the femoral neck fracture was performed. Traction and internal rotation were applied under live imaging. Reduction was confirmed with anatomic alignment and pentecostalism of neck-shaft angle on both AP and lateral fluoroscopic views. After satisfactory reduction, the skin over the lateral proximal femur was prepped and draped in standard sterile fashion. Small stab incisions were made, and two guidewires were inserted under fluoroscopic guidance across the femoral neck into the femoral head. Once guidewire position was satisfactory in all planes, two cannulated partially threaded screws were placed over the guidewires in an inverted configuration. Screw lengths were chosen to achieve subchondral purchase without joint penetration. We then locked proximal screw using guide. Fluoroscopy was used to confirm excellent reduction and appropriate hardware positioning in AP and lateral views. Final images were saved. The stab incisions were irrigated and closed with absorbable sutures/alexa and sterile dressings applied. The patient was removed from the fracture table and transferred to the stretcher in stable condition. Condition Fair Disposition Still a Patient HEVER CASTANEDA MD Jun 02, 2025 12:43
[2025-06-02] MEDS: LIDOCAINE 2%HCL (LOCAL ANESTH.) INJ 20ML MDV ONE ×2 (14:45→15:07)
[2025-06-02] MEDS: ANGIOMAX 250 MG VIAL IV ONE (14:54)
[2025-06-02] MEDS: HEPARIN SODIUM (PORCINE) 5000 UNITS/ML 1ML VIAL ONE (14:54)
[2025-06-02] MEDS: SODIUM CHL 0.9% 0 ML ONE (14:55)
[2025-06-02] MEDS: HYDROmorphone HCL 2 MG/ML VL/or syr ONE (14:58)
[2025-06-02] MEDS: MIDAZOLAM HCL 2MG/2ML 2ml VIAL (1mg/ml) ONE ×2 (15:00→16:00)
[2025-06-02] MEDS: fentaNYL CITRATE 100 MCG/2 ML VL ONE ×2 (15:05→16:00)
[2025-06-02] MEDS: IODIXANOL 320MG/ML 100ML BTL IV ONE (16:00)
--- NOTE | 2025-06-02 16:59 | DVHOP2 ---
Operative Report - 2 Report Details Date: 06/02/25 Preop Diagnosis: AAA and Right Common iliac artery aneurysm Postop Diagnosis: same Surgeon: Ulysses Daniel MD Anesthesiologist: con. cedillo Anesthesia: Local Consent: The patient was informed of the risks and benefits of the procedure. These include but are not limited to complications of anesthesia, postoperative infection, incomplete relief of symptoms, recurrence of symptoms, damage to blo od vessels, nerves and tendons, deep venous thrombosis, pulmonary embolism and possible need for repeat surgery in the future. Estimated Blood Loss: minimal Indications for Surgery: AAA and Right Gely aneurysm Name of Procedure Performed Right internal iliac artery embolization Procedure Details Procedure Details: Patient was identified in the preop hold area he was consented and preopped by myself and was brought back to the operating room placed the operating room table in supine position after adequate induction of anesthesia the right and left groins were prepped and draped in normal surgical fashion 1% lidocaine was used to inject above the left common femoral artery using a micropuncture needle a 4 Surinamese micropuncture catheter was passed into the left common femoral artery SFA exchanged out for a 6 Surinamese sheath. Wire and catheter were then manipulated into the right common iliac artery a 6 Surinamese destination sheath was then introduced into the right common iliac artery angiogram was demonstrated a large right common iliac artery aneurysm the origin of the internal iliac artery was identified at this point in time the catheter and wire were then manipulated into internal iliac artery down into secondary branches a [place] cath was then placed at the bifurcation of the 1st branch off the internal iliac artery then for sodium a coils were then deployed. Two 8 x 12 cm coils were then deployed followed by a 10 mm x 19 cm coil and finally a 8 x 24 cm coil. Completion angiogram demonstrated no flow into the internal iliac artery the flow was well down through the external iliac artery. At this point in time wires and catheters were removed a Mynx closure device was deployed without difficulty patient was awoke and taken to the PACU in a stable condition. Condition Fair Disposition Still a Patient ULYSSES DANIEL Jr., MD Jun 02, 2025 16:59
[2025-06-03] VITALS (8 sets, daily range): BP systolic 111–130; BP diastolic 77–87; PULSE 68–98; RESP 14–20; TEMP 97.6–98.1; O2SAT 92–98
[2025-06-03 06:18] LABS: Hematocrit 43.6 % (41.0-53.0); Hemoglobin 15.3 g/dL (13.5-17.5); Mean Corpuscular Hemoglobin 28.4 pg (28.0-32.0); Mean Corpuscular Volume 81.1 fL (80.0-100.0); Nucleated Red Blood Cells % 0.0 %
[2025-06-03 06:33] LABS: Alkaline Phosphatase 80 U/L (46-116)
[2025-06-03 06:34] LABS: Alanine Aminotransferase 37 U/L (7-40); Anion Gap 11 (5-15); BUN/Creatinine Ratio 16.9 (10.0-20.0); Blood Urea Nitrogen 15 mg/dL (9-23); Calcium 8.7 mg/dL (8.7-10.4); Carbon Dioxide 24 mmol/L (20-31); Chloride 101 mmol/L (98-107); Potassium 4.1 mmol/L (3.5-5.1); Total Protein 6.3 g/dL (5.7-8.2)
[2025-06-03 06:35] LABS: Albumin 4.0 g/dL (3.2-4.8); Bilirubin, Total 1.1 mg/dL (0.2-1.0)
[2025-06-03 06:36] LABS: Glucose 112 mg/dL (74-106); Sodium 136 mmol/L (136-145)
[2025-06-03] MEDS ORDERED: SUCCINYLCHOLINE CHLORIDE 20 MG/ML 10ML VIAL IV ONE (06:42)
[2025-06-03] MEDS: ROCURONIUM 10MG/ML 10ML VIAL IV ONE (06:42)
[2025-06-03] MEDS ORDERED: fentaNYL CITRATE 100 MCG/2 ML VL ONE (07:44)
[2025-06-03] MEDS ORDERED: ONDANSETRON HCL 4 MG/2 ML VIAL ONE (07:44)
[2025-06-03] MEDS ORDERED: SODIUM CHLORIDE LOCK 50 ML ONE (07:44)
[2025-06-03] MEDS ORDERED: fentaNYL CITRATE 5 ML ONE ×3 (07:44→12:52)
[2025-06-03] MEDS ORDERED: LIDOCAINE 1% INJ PF 5ML AMP ONE (07:44)
[2025-06-03] MEDS ORDERED: KETAMINE 50mg/ML 10ml Vial 10 ML ONE (07:44)
[2025-06-03] MEDS ORDERED: HYDROmorphone HCL 2 MG/ML VL/or syr ONE (07:44)
[2025-06-03] MEDS ORDERED: LIDOCAINE 2% TOPICAL JELLY 5 ML URJT TOP ONE (07:44)
[2025-06-03] MEDS ORDERED: MIDAZOLAM HCL 2MG/2ML 2ml VIAL (1mg/ml) ONE (07:44)
[2025-06-03] MEDS ORDERED: ETOMIDATE (2MG/ML) 20ML VIAL IV ONE (07:44)
[2025-06-03] MEDS ORDERED: ceFAZolin 2 GM/D5W50ml 50 ML IV ONE (08:46)
[2025-06-03] MEDS ORDERED: HEPARIN SODIUM (PORCINE) 5000 UNITS/ML 1ML VIAL ONE ×2 (08:46→11:06)
[2025-06-03] MEDS ORDERED: GELATIN 1 SPONGE SIZE 100 TOP ONE (08:47)
--- NOTE | 2025-06-03 09:51 | DVHPN2 ---
Progress Note Date Seen: Jun 03, 2025 Has the PT tested + for MRSA If YES, has PT been informed?: No Medical Necessity Reason Pt with a Central, PICC or Fol: No Subjective Patient reports: No new complaints Review of Systems: HEENT:Normal, CVS:Normal, RESPIRATORY:Normal, GI:Normal, :Normal, MSK:Normal, NEURO:Normal Objective vital signs Vital Sign Date Time Temp Pulse Resp B/P (MAP) Pulse Ox O2 Delivery O2 Flow Rate FiO2 06/03/25 09:00 98.1 94 18 123/77 (92) 95 98.1 06/03/25 08:00 Room Air* 0 21 Total Intake and Output 06/02/25 06/02/25 06/03/25 15:00 23:00 07:00 Intake Total 0 ml 250 ml Output Total 300 ml Balance -300 ml 0 ml 250 ml medications Current Medications Medications Dose Ordered Sig/Juli Route Start Time Stop Time Status Last Admin Dose Admin Patient Own Medication 1 tab HS PO 05/27/25 22:00 UNV Atorvastatin Calcium 10 mg HS PO 05/27/25 22:00 06/02/25 22:50 10 MG Lisinopril 20 mg DAILY PO 05/29/25 10:00 06/01/25 08:52 20 MG Docusate Sodium 100 mg BID PO 05/29/25 22:00 Acetaminophen/ Hydrocodone Bitart 1 tab Q6HR PO 05/31/25 12:00 06/03/25 00:23 1 TAB Lactulose 30 ml BID PO 05/31/25 10:00 06/01/25 08:57 30 ML Examination: GENERAL:Normal, HEENT:Normal, NECK:Normal, LUNGS:Normal, CVS:Normal, ABDOMEN:Normal, MSK:Normal, SKIN:Normal, NEURO:Normal, :Normal laboratory and microbiology Laboratory Tests 06/03/25 05:37 Test 06/03/25 05:37 Range/Units Serum Glucose 112 H 74-106 mg/dL Problem List/Assessment/Plan Problem List/Assessment/Plan #1 right hip fracture: s/p surg #2 htn #3 obesity #4 AAA: repair today #5 tobacco abuse: advised to quit, refused patch- time spent 11 mins #6 prediabetes #7 right iliac artery embolization for aneurysm advance care planning- full code- time spent 17 mins Plan discussed with: Patient Dietary Evaluation Review Recommendations by RD: Dietary education by RD Comments: 1) Add 60g CCHO restriction to cardiac diet d/t elevated HbA1c 2) Encourage optimal PO intake 3) Advise patient to limit intake of added sugar included sugar-sweetened beverages, desserts, candy, etc. 4) Refer to outpatient RD/CDCES for weight management 5) Follow-up with orthopedic surgeon, PT, and cardiology 6) Continue to monitor I&O, labs, and skin integrity Expected Outcomes/Goals: 1) appetite and labs to improve 2) gradual wt loss 2) f/u in 3-5 days Date of Service: Jun 03, 2025 Billing Provider: GAVI TALLEY MD Common Visit Codes: [id number] INP/OBS CARE(HIGH) GAVI TALLEY MD Jun 03, 2025 09:51
[2025-06-03] MEDS ORDERED: HEPARIN 1,000 UNITS/ml 1ML VIAL ONE (11:09)
[2025-06-03] MEDS ORDERED: PROPOFOL 10 MG/ML 20 ML IV ONE ×3 (13:00)
[2025-06-03] MEDS: LIDOCAINE 1% HCL (LOCAL ANESTH.) INJ 20ML MDV ONE (13:14)
[2025-06-03] MEDS: BUPIVACAINE HCL 0.25% P/F 10 ML VIAL ONE (13:14)
[2025-06-03] MEDS: IOHEXOL 300 MG/ML 100ML BOTTLE IJ ONE ×2 (13:15→13:17)
[2025-06-03] MEDS: HEPARIN 1,000 UNITS/ml 1ML VIAL ONE (13:18)
[2025-06-03] MEDS ORDERED: SUGAMMADEX 200mg/2ml Vial (100MG/ML) IV ONE (13:23)
--- NOTE | 2025-06-03 14:42 | DVH ---
C-ARM FLUOROSCOPY: PROCEDURE: Lower extremity angiography FLUOROSCOPY TIME: 2353.2 seconds DAP: 1595 mgy FINDINGS: Spot intraoperative C arm radiographs demonstrating lower extremity angiography. IMPRESSION: Please refer to surgical report for detailed findings.
--- NOTE | 2025-06-03 14:45 | DVHOP2 ---
Operative Report - 2 Report Details Date: 06/03/25 Preop Diagnosis: AAA and bilateral common iliac artery aneurysms Postop Diagnosis: same Surgeon: Ulysses Daniel MD Anesthesiologist: General Anesthesia: General Consent: The patient was informed of the risks and benefits of the procedure. These include but are not limited to complications of anesthesia, postoperative infection, incomplete relief of symptoms, recurrence of symptoms, damage to bl ood vessels, nerves and tendons, deep venous thrombosis, pulmonary embolism and possible need for repeat surgery in the future. Estimated Blood Loss: minimal Name of Procedure Performed Endovascular aortic aneurysm repair Procedure Details Procedure Details: Patient was identified in the preop hold area he was consented and preopped by myself and was brought back to the operating room placed the operating room table in supine position after adequate induction of anesthesia the right and left groins were prepped and draped in normal surgical fashion. A standard bilateral common femoral artery incisions were made in transverse fashion. Dissection was taken down to the common femoral arteries bilaterally the common femoral arteries were both healthy nature and large they were both the controlled with vessel loops proximally and distally. [place] [id number] units of heparin was given to the patient each common femoral artery was then cannulated under direct vision with 4 Algerian micropuncture needle exchanged out for a 6 Algerian sheath. At this point in time stiff Amplatz wires were then passed up to the aortic arch. Right 18 Algerian [place] sheath was then passed up to the level of the renal arteries a 16 Algerian [place] sheath was then passed up in the left limb to the level of the renal arteries. A angiogram was performed demonstrated the renal arteries both be patent and the lower renal artery via at the level on the left side. The main body was then passed up to the right leg through the common femoral artery and then this limb was a 36 x 14.5 x 14 cm aortic Madison excluder graft. The proximal limb was then deployed under direct supervision. It was deployed a confirmation was performed that demonstrated the left renal artery was widely patent. At this point in time we then cannulated the the left gate with a wire and catheter technique a angiogram was performed to demonstrate the lowest portion of the left common iliac aneurysm as well as the bifurcation of the internal artery. A 27 x 14 cm [place] iliac branch was then deployed without difficulty attention was then placed to deploying the remaining portion of the main body of the graft on the right side a pigtail catheter was then passed in the right iliac artery and marked off where the measurements for the distal portion of the external iliac artery past the bifurcation where the coils had been placed yesterday. A 12 x 14 cm limb was then deployed a 2nd limb was deployed 12 x 10 cm at this point in time a compliant balloon was then used to angioplasty and iron down the proximal and distal anastomosis. A completion aortogram and runoff demonstrated no type 1 endoleaks no evidence of a type 2 endoleaks. At this point in time the wires and catheters were removed the groins were then irrigated out and then common femoral arteries were then closed with a 5 0 Prolene in a transverse fashion. Flow was restored down to both lower extremities. The deep common femoral sheath was then closed with a 2-0 Vicryl sutures followed by dermal layers of 3- 0 Vicryl sutures followed by 4-0 Monocryl subcuticular suture. Dermabond was applied to the skin. Sponge and needle counts were correct at the end of procedure patient awoke without any difficulties taken to the PACU in stable condition. Palpable pedal pulses were noted at the end of the procedure. Condition Good Disposition Still a Patient ULYSSES DANIEL Jr., MD Jun 03, 2025 14:45
--- NOTE | 2025-06-03 15:07 | DVH ---
Indication: ABDOMINAL AORTIC ANEURYSM REPAIR Technique: XY KUB ABDOMEN SINGLE VIEWXY Comparison: None FINDINGS/IMPRESSION: Intraoperative radiographs for aorto bi-iliac endograft placement. Please refer to operative report f or findings.
[2025-06-04 01:00] VITALS: BP 133/78; PULSE 90; RESP 18; TEMP 98; O2SAT 95
[2025-06-04 05:00] VITALS: BP_SYST 122; BP_SYST 133; BP_DIAS 51; BP_DIAS 68; PULSE 68; PULSE 72; RESP 12; RESP 16; TEMP 97.6; TEMP 97.9; O2SAT 96; O2SAT 97
--- NOTE | 2025-06-04 06:53 | DVHPN2 ---
Progress Note Date Seen: Jun 04, 2025 Has the PT tested + for MRSA If YES, has PT been informed?: No Medical Necessity Reason Pt with a Central, PICC or Fol: No Subjective Patient reports: Feels better Review of Systems: HEENT:Normal, CVS:Normal, RESPIRATORY:Normal, GI:Normal, :Normal, MSK:Normal, NEURO:Normal Objective vital signs Vital Sign Date Time Temp Pulse Resp B/P (MAP) Pulse Ox O2 Delivery O2 Flow Rate FiO2 06/04/25 05:00 97.9 68 12 122/68 (86) 96 97.9 06/03/25 20:00 Room Air* 0 21 Total Intake and Output 06/03/25 06/03/25 06/04/25 15:00 23:00 07:00 Intake Total 100 ml 150 ml 750 ml Output Total 800 ml 1400 ml 1475 ml Balance -700 ml -1250 ml -725 ml medications Current Medications Medications Dose Ordered Sig/Juli Route Start Time Stop Time Status Last Admin Dose Admin Patient Own Medication 1 tab HS PO 05/27/25 22:00 UNV Atorvastatin Calcium 10 mg HS PO 05/27/25 22:00 06/03/25 22:54 10 MG Lisinopril 20 mg DAILY PO 05/29/25 10:00 06/01/25 08:52 20 MG Docusate Sodium 100 mg BID PO 05/29/25 22:00 Acetaminophen/ Hydrocodone Bitart 1 tab Q6HR PO 05/31/25 12:00 06/03/25 17:13 1 TAB Lactulose 30 ml BID PO 05/31/25 10:00 06/01/25 08:57 30 ML Examination: GENERAL:Normal, HEENT:Normal, NECK:Normal, LUNGS:Normal, CVS:Normal, ABDOMEN:Normal (incision cdi) laboratory and microbiology Laboratory Tests 06/03/25 05:37 Test 06/03/25 05:37 Range/Units Serum Glucose 112 H 74-106 mg/dL Problem List/Assessment/Plan Problem List/Assessment/Plan s/p evar 06/04/2025 OOB reg diet d/c home today f/u 2weeks Plan discussed with: Patient My Orders My Orders Orders - ROULA CORDOBA Jr., MD Procedure Category Date Status Time Kub Abdomen Single XY 06/03/25 Resulted View 13:58 C Arm Fluoroscopy Up XY 06/03/25 Resulted To 60min 14:00 Regular Diet DIET 06/03/25 Transmitted Dinner Dietary Evaluation Review Recommendations by RD: Dietary education by RD Comments: 1) Add 60g CCHO restriction to cardiac diet d/t elevated HbA1c 2) Encourage optimal PO intake 3) Advise patient to limit intake of added sugar included sugar-sweetened beverages, desserts, candy, etc. 4) Refer to outpatient RD/CDCES for weight management 5) Follow-up with orthopedic surgeon, PT, and cardiology 6) Continue to monitor I&O, labs, and skin integrity Expected Outcomes/Goals: 1) appetite and labs to improve 2) gradual wt loss 2) f/u in 3-5 days ROULA CORDOBA Jr., MD Jun 04, 2025 06:53
[2025-06-04 07:27] LABS: Hematocrit 42.0 % (41.0-53.0); Hemoglobin 14.7 g/dL (13.5-17.5); Mean Corpuscular Hemoglobin 28.5 pg (28.0-32.0); Mean Corpuscular Volume 81.4 fL (80.0-100.0); Nucleated Red Blood Cells % 0.1 %
[2025-06-04 07:42] LABS: Alanine Aminotransferase 36 U/L (7-40); Alkaline Phosphatase 76 U/L (46-116); Anion Gap 10 (5-15); BUN/Creatinine Ratio 16.3 (10.0-20.0); Blood Urea Nitrogen 15 mg/dL (9-23); Carbon Dioxide 25 mmol/L (20-31); Chloride 102 mmol/L (98-107); Potassium 4.4 mmol/L (3.5-5.1); Sodium 137 mmol/L (136-145); Total Protein 6.1 g/dL (5.7-8.2)
[2025-06-04 07:43] LABS: Albumin 4.0 g/dL (3.2-4.8); Calcium 8.6 mg/dL (8.7-10.4); Glucose 116 mg/dL (74-106)
[2025-06-04 07:44] LABS: Bilirubin, Total 1.0 mg/dL (0.2-1.0)
[2025-06-04 08:00] VITALS: PULSE 95; RESP 16
[2025-06-04] MEDS ORDERED: HYDR1TAB97 PO (11:00)
--- NOTE | 2025-06-04 11:00 | DVHDS2 ---
Discharge Summary Date of Admission May 27, 2025 at 11:49 Date of Discharge: Jun 01, 2025 Labs/Diagnostic Data: Laboratory Results Test 06/04/25 07:01 05/28/25 05:24 05/27/25 14:00 05/27/25 01:50 White Blood Count 10.7 10^3/uL (4.4-10.8) Red Blood Count 5.16 10^6/uL (4.5-5.90) Hemoglobin 14.7 g/dL (13.5-17.5) Hematocrit 42.0 % (41.0-53.0) Mean Corpuscular Volume 81.4 fL (80.0-100.0) Mean Corpuscular Hemoglobin 28.5 pg (28.0-32.0) Mean Corpuscular Hemoglobin Concent 35.1 g/dL (32.0-36.0) Red Cell Distribution Width 14.0 % (11.8-14.3) Platelet Count 219 10^3/uL (140-450) Mean Platelet Volume 7.3 fL (6.9-10.8) Neutrophils (%) (Auto) 79.9 % (37.0-80.0) Lymphocytes (%) (Auto) 12.7 % (10.0-50.0) Monocytes (%) (Auto) 7.1 % (0.0-12.0) Eosinophils (%) (Auto) 0.1 % (0.0-7.0) Basophils (%) (Auto) 0.2 % (0.0-2.0) Neutrophils # (Auto) 8.6 10 ^3/uL (1.6-8.6) Lymphocytes # (Auto) 1.4 10 ^3/uL (0.4-5.4) Monocytes # (Auto) 0.8 10 ^3/uL (0-1.3) Eosinophils # (Auto) 0 10 ^3/uL (0-0.8) Basophils # (Auto) 0 10 ^3/uL (0-0.2) Nucleated Red Blood Cells 0.1 % Sodium Level 137 mmol/L (136-145) Potassium Level 4.4 mmol/L (3.5-5.1) Chloride Level 102 mmol/L (98-107) Carbon Dioxide Level 25 mmol/L (20-31) Anion Gap 10 (5-15) Blood Urea Nitrogen 15 mg/dL (9-23) Creatinine 0.92 mg/dL (0.700-1.30) Glomerular Filtration Rate Calc 89 mL/min (>90) BUN/Creatinine Ratio 16.3 (10.0-20.0) Serum Glucose 116 mg/dL (74-106) Calcium Level 8.6 mg/dL (8.7-10.4) Total Bilirubin 1.0 mg/dL (0.2-1.0) Aspartate Amino Transferase (AST) 35 U/L (13-40) Alanine Aminotransferase (ALT) 36 U/L (7-40) Alkaline Phosphatase 76 U/L (46-116) Total Protein 6.1 g/dL (5.7-8.2) Albumin 4.0 g/dL (3.2-4.8) Prothrombin Time 11.3 sec (9.3-11.8) Prothrombin Time INR 1.07 (0.9-1.15) Activated Partial Thromboplast Time 29.1 SEC (24.5-34.5) Urine Color Yellow (Yellow) Urine Clarity Clear (Clear) Urine pH 5.5 (5.0-9.0) Urine Specific [place] 1.049 (1.001-1.035) Urine Protein Negative (Negative) Urine Ketones 1+ (Negative) Urine Blood Negative /uL (Negative) Urine Nitrite Negative (Negative) Urine Bilirubin Negative (Negative) Urine Urobilinogen Normal mg/dL (Negative) Urine Leukocyte Esterase Negative /uL (Negative) Urine RBC 2 /hpf (0 - 3) Urine Microscopic WBC 1 /HPF (0-3) Urine Squamous Epithelial Cells Few /hpf (<5) Urine Bacteria Few /hpf (None Seen) Urine Glucose Normal mg/dL (Normal) Hemoglobin A1c 6.2 % A1C (<5.7) Magnesium Level 2.0 mg/dL (1.6-2.6) Triglycerides Level 90 mg/dL (< 150) Cholesterol Level 135 mg/dL (< 200) LDL Cholesterol 86 mg/dL (< 100) HDL Cholesterol 40 mg/dL (40-59) Thyroid Stimulating Hormone (TSH) 1.16 uIU/mL (0.55-4.78) Other Laboratory Tests 06/04/25 07:01 Brief Hx & Hospital Course: SEE DICTATED NOTE Condition at Discharge: Fair Final Diagnosis/Problems List hip fracture AAA Discharge Disposition: Home with Health Services Discharge Instruct/Medications Diet: Cardiac 2g Na,low cholest Activity: No Restrictions, As Tolerated Follow Up/Referral: fu with [facility] Medications: RESUME HOME MEDS SCRIPT TO PHARMACY Scheduled Amlodipine Besylate (Amlodipine Besylate), 1 TAB PO DAILY, (Reported) Lisinopril (Lisinopril), 1 TAB PO DAILY, (Reported) Pantoprazole Sodium Sesquihydr (Pantoprazole Sodium), 1 TAB PO DAILY, (Reported) Simvastatin (Simvastatin), 1 TAB PO HS, (Reported) Discharge Statement: "Patient was advised to return to the ER or call 911 if any headaches, dizziness, shortness of breath, chest pain, abdominal pain, bleeding, fevers, or worsening of medical condition. Patient was counseled about treatment plan, medications, possible side effects, patientverbalized understanding. All questions were answered to the best of my ability. This discharge took greater then 30 minutes in planning, reviewing documentation, counseling the patient, and discussing with other team members." ASSESSMENT ASSESSMENT Assessment hip fracture AAA Date of Service: Jun 04, 2025 Billing Provider: GAVI TALLEY MD Common Visit Codes: 82135-AWM/OBS DISCH DAY >30min GAVI TALLEY MD Jun 04, 2025 11:00
[2025-06-04 12:30] VITALS: BP 109/79; PULSE 83; RESP 19; TEMP 97.4; O2SAT 97
[2025-06-04 16:26] VITALS: BP 133/51; TEMP 36.3
--- NOTE | 2025-06-05 07:23 | DVHDS ---
DATE OF DISCHARGE: 06/04/2025 ADDENDUM The patient's surgery was done at [facility] by Dr. Daniel. The patient had repair of iliac artery aneurysm as well as abdominal aortic aneurysm. The patient has now been cleared for discharge. He will be discharged home with home physical therapy, home walker, bedside commode, wheelchair, as well as the shower chair. The patient will also be placed on [place] p.r.n. for pain. FINAL DIAGNOSES: * Right hip fracture status post surgery. * Right iliac artery embolization for aneurysm repair. * AAA repair. * Hypertension. * Obesity. * Tobacco abuse. * Prediabetes. Time spent in discharge planning and review of plan with the patient, nursing, and at the bedside was 39 minutes. MD GOYO Roman/CASSIA TID: [id number] RECEIPT: [id number]
--- NOTE | 2025-06-05 14:46 | ECG ---
[facility] Test Date: 2025-05-27 Test Time: 12:33:24 Pat Name: DEVORA MCKEON Department: ER Room: 0217T B Gender: M Merchandise Coordinator: LEIAS : 1955 Requested By: RHYS FOY Order Number: [id number] Reading MD: Reddy Underwood Measurements Intervals [place] Rate: 113 P: 0 CT: 0 QRS: 31 QRSD: 86 T: 16 QT: 376 QTc: 516 Interpretive Statements Normal sinus rhythm Borderline T abnormalities, lateral leads Frequent multifocal PVCs Borderline prolonged QT interval Electronically Signed On 06-08-2025 16:49:55 PDT by Reddy Underwood Please click the below link to view image of tracing.
--- NOTE | 2025-06-05 14:46 | ECG ---
[facility] Test Date: 2025-05-27 Test Time: 12:32:44 Pat Name: DEVORA MCKEON Department: ER Room: 0217T B Gender: M Artillery Officer: ELIAS : 1955 Requested By: RHYS FOY Order Number: [id number] Reading MD: Reddy Underwood Measurements Intervals [place] Rate: 105 P: 41 VA: 162 QRS: 37 QRSD: 113 T: -27 QT: 381 QTc: 504 Interpretive Statements Sinus tachycardia Paired ventricular premature complexes Aberrant complex Incomplete left bundle branch block Low voltage, precordial leads Prolonged QT interval Electronically Signed On 06-08-2025 16:41:46 PDT by Reddy Underwood Please click the below link to view image of tracing.
== END 2025-06-04 17:08 | disposition home health service (06) | DRG 481 ==
LOC: EDBD 21:26 → ER 21:26 → OVERFLOW 05-27 11:49 → TELE-CENTR 05-27 21:15
PROVIDERS: ADMIT Internal Medicine; ATTEND Internal Medicine
PROC: 0QS604Z Reposition Right Upper Femur with Internal Fixation Device, Open Approach (ICD-10-PCS; principal; 2025-05-29 07:19)
PROC: B41F1ZZ Fluoroscopy of Right Lower Extremity Arteries using Low Osmolar Contrast (ICD-10-PCS; 2025-06-02)
PROC: 04VE3DZ Restriction of Right Internal Iliac Artery with Intraluminal Device, Percutaneous Approach (ICD-10-PCS; 2025-06-02)
PROC: 04V03DZ Restriction of Abdominal Aorta with Intraluminal Device, Percutaneous Approach (ICD-10-PCS; 2025-06-03)
PROC: 04703ZZ Dilation of Abdominal Aorta, Percutaneous Approach (ICD-10-PCS; 2025-06-03)
PROC: 04VC3DZ Restriction of Right Common Iliac Artery with Intraluminal Device, Percutaneous Approach (ICD-10-PCS; 2025-06-03)
PROC: 04VD3DZ Restriction of Left Common Iliac Artery with Intraluminal Device, Percutaneous Approach (ICD-10-PCS; 2025-06-03)
DX: S72.041A Displaced fracture of base of neck of right femur, initial encounter for closed fracture (principal); I42.9 Cardiomyopathy, unspecified; I50.22 Chronic systolic (congestive) heart failure; I11.0 Hypertensive heart disease with heart failure; I72.3 Aneurysm of iliac artery; E66.01 Morbid (severe) obesity due to excess calories; I71.43 Infrarenal abdominal aortic aneurysm, without rupture; Z68.30 Body mass index [BMI] 30.0-30.9, adult; E78.5 Hyperlipidemia, unspecified; K21.9 Gastro-esophageal reflux disease without esophagitis; R73.03 Prediabetes; I49.3 Ventricular premature depolarization; F17.290 Nicotine dependence, other tobacco product, uncomplicated; Y93.89 Activity, other specified; W01.0XXA Fall on same level from slipping, tripping and stumbling without subsequent striking against object, initial encounter; Y92.89 Other specified places as the place of occurrence of the external cause; Y99.8 Other external cause status
CPT/HCPCS: 36415; 37242; 71045; 72192; 73501; 73502; 74018; 74175; 76000; 80048; 80053; 80061; 81001; 83036; 83735; 84132; 84443; 85025; 85610; 85730; 86850; 86900; 86901; 93005; 93306; 96372; 97110; 97116; 97163; 97530; 99152; A6198; C1876; C1894; G0378; J0131; J0169; J0330; J1100; J1885; J2003; J2250; J2405; J2470; J2704; J3490; Q9967